=== PATIENT | female | born 1995 | race Caucasian/White ===

== ENCOUNTER 2016-07-12 05:42 | Inpatient (IN) | payer OTHER ==
[2016-07-12] VITALS (8 sets, daily range): BP systolic 108–128; BP diastolic 53–72
[~2016-07-12] VITALS: Ht 165.1 cm; Wt 69.0 kg
[~2016-07-12 05:42] MED LIST: FERR325T3 PO; PRENTAB9 PO
[2016-07-12 06:23] LABS: MEAN CORPUSCULAR HEMOGLOBIN 24.3 pg (27.0-33.0); MEAN CORPUSCULAR HGB CONC 31.7 g/dl (32.0-36.5); MEAN CORPUSCULAR VOLUME 76.6 fl (80.0-96.0); RED CELL DISTRIBUTION WIDTH 17.5 % (11.5-14.5)
[2016-07-12] MEDS ORDERED: LACTATED RINGER'S 1000 ML IV STA (08:09)
[2016-07-12] MEDS ORDERED: LR 1,000 ML IV SCH ×2 (08:09→10:30)
[2016-07-12] MEDS ORDERED: BICITRA 30ML SOLN UDC PO ONE (08:15)
--- NOTE | 2016-07-12 08:41 | HPEPDOC ---
Obstetrical History & Physical General Date of Admission July 12, 2016 at 05:42 History of Present Illness Jennifer Delgado is a 20yo with SIUP at 39w0d presenting for RLTCS. She has hx of prior for likely abruption with NRFHT at 36wk in August 2015. Short inter- interval. Anemia in current . Feels well with no complaints today. Feels good movement. No ctx, LOF, vb. Chief Complaint: section Information Provided By: Patient Care Care: Good Care Dating Final EDC: July 19, 2016 Final EDC by: LMP, 1st trimester (US) Antepartum Course Diagnos(e)s History of prior . Short inter- interval. Anemia. Height (inches): 65 Pre- weight (lbs.): 125 Admission Weight (lbs.): 157 Change in Weight (lbs.): 32 Past Medical History Past Obstetrical History : Past Obstetrical History: Multigravida Date of Delivery: Aug 04, 2015 Type of Delivery: Ceserean section Sex of : Female Complications: Yes ( for abruption with NRFHT, infant had IUGR) [employer] TE[employer]ER History: No pertinent history Past Medical History Medical History benign Surgical History: section, Tonsilectomy Family History Significant Family History: No pertinent family hx Social History Marital Status: Family situation: Spouse/partner home Psychosocial History: No pertinent psych hx * Smoker: non-smoker Alcohol: Denies Drugs: denies Imunizations Tdap status: declined Influenza Status: declined Allergies Coded Allergies: No Known Allergies (Unverified , 07/05/16) Medications Scheduled Ferrous Sulfate (Ferrous Sulfate) 325 Mg Tab, 325 MG PO DAILY Multivitamins/ ( 27-0.8 mg) 1 Tab Tab, 1 TAB PO DAILY Physical Examination Physical Examination GENERAL: Alert and oriented times three. ABDOMEN: Gravid and non-tender to touch. HEART RATE: Regular rate and rhythm. LUNGS: Clear to auscultation (CTA). EXTREMITIES: Trace edema BLE Vital Signs/I&O Vital Signs Date Time Temp Pulse Resp B/P (MAP) Pulse Ox O2 Delivery O2 Flow Rate FiO2 07/12/16 07:20 98.0 85 18 117/72 (87) Laboratory Data 24H LABS Laboratory Tests 2 07/12/16 00:07: Serology Scanned Report Hepatitis B Testing 07/12/16 06:06: CBC/BMP Laboratory Tests 07/12/16 06:06 Red Blood Count 4.00, Mean Corpuscular Volume 76.6 L, Mean Corpuscular Hemoglobin 24.3 L, Mean Corpuscular Hemoglobin Concent 31.7 L, Red Cell Distribution Width 17.5 H Pertinent Laboratoy Data Blood Type: A+ RBC Antibody Screen: Negative HIV: Negative Hepatitis B: Negative Hepatitis C: Unknown Rubella: Immune Varicella: Nonreactive Chlamydia/Gonorrhea: Negative Group B Streptococcus: Positive Glucose Tolerance Test: 132 Anatomy Ultrasound Ultrasound Date: Mar 03, 2016 Placenta Location: Posterior Normal Anatomy: Yes Placenta Previa: No Other Ultrasounds At 28wk, GS 64%ile Steroid Therapy Steroid Therapy: No Assessment/Plan Assessment Jennifer Delgado is a 20yo with SIUP at 39w0d presenting for RLTCS. She has hx of prior for likely abruption with NRFHT at 36wk in August 2015. That infant had IUGR, likely placental insufficiency issue. In this , 28wk GS performed with EFW 64%ile. She has short inter- interval (last c/s was August 2015), so recommended RLTCS rather than TOLAC. She has anemia of , otherwise healthy. No allergies to medications, GBS positive. Vitals wnl, benign exam. Plan Admit and orient. Consented for RLTCS, accepting of blood transfusion should one be necessary. All questions answered. NPO before surgery Anceph 2g IV pre-op Bicitra Lactated Ringers (LR): Bolus 1000 mL, then at 125 mL/hr MD ANA Campos KATRINA D. MD July 12, 2016 08:41
[2016-07-12] MEDS ORDERED: NALOXONE INJ 0.4 MG/1 ML VIAL (J2310) IV PRN ×2 (08:44)
[2016-07-12] MEDS ORDERED: NALBUPHINE HCL 10 MG/ML AMP (J2300) IV PRN (08:44)
[2016-07-12] MEDS ORDERED: ONDANSETRON 4MG/2ML VIAL (J2405) IV PRN ×2 (08:44→10:30)
[2016-07-12] MEDS ORDERED: METOCLOPRAMIDE INJ 10MG/2ML VIAL (J2765) IV PRN (08:44)
[2016-07-12] MEDS ORDERED: ONDANSETRON 4MG/2ML VIAL (J2405) As Ordered ONE (09:41)
[2016-07-12] MEDS ORDERED: dexameTHASONE 4 MG/ML 1ML VIAL (J1100) As Ordered ONE (09:41)
[2016-07-12] MEDS ORDERED: OXYTOCIN INJ 10 UNITS/ML VIAL (J2590) As Ordered ONE ×2 (09:41→09:57)
[2016-07-12] MEDS ORDERED: PHENYLephrine HCL 500 MCG/5 ML (100MCG/ML) SYRINGE (J2370) As Ordered ONE (09:41)
[2016-07-12] MEDS ORDERED: ePHEDrine SULFATE 25 MG/5 ML(5MG/ML) SYRINGE As Ordered ONE (09:41)
[2016-07-12] MEDS ORDERED: MORPHINE PRES-FREE INJ 10 MG/10 ML VIAL (J2274) As Ordered ONE (09:41)
[2016-07-12] MEDS ORDERED: KETOROLAC 60 MG/2 ML VIAL (J1885) As Ordered ONE (09:41)
[2016-07-12] MEDS ORDERED: fentaNYL 100 MCG/2 ML INJECTION (J3010) IV PRN (10:30)
[2016-07-12] MEDS ORDERED: diphenhydrAMINE INJ 50MG/ML VIAL (J1200) IV PRN (10:30)
[2016-07-12] MEDS ORDERED: PERCOCET 5MG/325MG TAB PO PRN ×2 (10:30)
[2016-07-12] MEDS ORDERED: MEASLES,MUMPS,RUBELLA VACCINE INJ (MMR-II) (90707) SC SCH (10:30)
[2016-07-12] MEDS ORDERED: KETOROLAC 30 MG/ML VIAL (J1885) IV PRN (10:30)
[2016-07-12] MEDS ORDERED: RHOGAM 300 MCG (1500 IU) INJ (J2790) IM SCH (10:30)
[2016-07-12] MEDS: KETOROLAC 30 MG/ML VIAL (J1885) IV SCH ×2 (16:18→21:51)
[2016-07-12] MEDS: DOCUSATE SODIUM 100 MG CAP PO SCH (21:00)
[2016-07-13] MEDS: KETOROLAC 30 MG/ML VIAL (J1885) IV SCH ×2 (04:42→09:56)
[2016-07-13 06:00] VITALS: BP 99/56
[2016-07-13 07:24] LABS: MEAN CORPUSCULAR HEMOGLOBIN 24.4 pg (27.0-33.0); MEAN CORPUSCULAR HGB CONC 31.4 g/dl (32.0-36.5); MEAN CORPUSCULAR VOLUME 77.6 fl (80.0-96.0); RED CELL DISTRIBUTION WIDTH 17.4 % (11.5-14.5); WHITE BLOOD COUNT 10.4 K/mm3 (4.0-10.0)
--- NOTE | 2016-07-13 08:48 | IPNPDOC ---
Text Note Date of Service The patient was seen on 07/13/16. NOTE Post-Op Day 1 Jennifer is a 20yo [id number] doing well on post-op day 1 s/p uncomplicated RLTCS at 39wk indicated for hx of prior with short inter- interval. She is . Lochia normal, spontaneously voiding and ambulating without difficulty. Tolerating regular diet. Denies f/c/n/v/SOB/CP/BAUTISTA/abdominal pain. Vitals wnl, afebrile Exam: General: WDWN, NAD, resting comfortably Cardiac: S1S2 present, no murmur Lungs: CTAB without wheeze/crackles Abdomen: soft, NTTP, fundus firm u-2cm, pfannensteil covered by dry dressing with no strike-through Extremities: no tenderness of calves bilaterally Labs: pre-op H/H 9.7/30.6 post-op H/H 8/25.5 Assessment: Jennifer is a 20yo [id number] doing well on post-op day 1 s/p uncomplicated RLTCS at 39wk indicated for hx of prior with short inter- interval. Vitals wnl, benign exam. No e/o infection, hemodynamically stable. Plan: -routine post-op/post- care -Regular diet -percocet/motrin for pain -ok to shower today -Encourage ambulation and use of IS -declines -anticipate discharge tomorrow Dr. Janie Archer MD [place] ALICIA VS,Marcelina, I+O VS, Marcelina, I+O Laboratory Tests 07/13/16 07:03 Red Blood Count 3.29 L, Mean Corpuscular Volume 77.6 L, Mean Corpuscular Hemoglobin 24.4 L, Mean Corpuscular Hemoglobin Concent 31.4 L, Red Cell Distribution Width 17.4 H Vital Signs Date Time Temp Pulse Resp B/P (MAP) Pulse Ox O2 Delivery O2 Flow Rate FiO2 07/13/16 06:00 97.7 61 18 99/56 (70) 99 I&O- Last 24 Hours up to 6 AM 07/13/16 06:00 Intake Total 1300 ml Output Total 2850 ml Balance -1550 ml JANIE ARCHER MD July 13, 2016 08:48
[2016-07-13] MEDS: DOCUSATE SODIUM 100 MG CAP PO SCH ×2 (09:56→21:00)
[2016-07-13] MEDS: PRENATAL VITAMIN TAB PO SCH (09:56)
[2016-07-13 10:30] VITALS: BP 114/64
--- NOTE | 2016-07-13 12:21 | RO ---
DATE OF PROCEDURE: 07/12/2016 PREPROCEDURE DIAGNOSES: 1. Single intrauterine at 39 weeks 0 days with a history of prior section. 2. Short interpregnancy interval. 3. Anemia of . POSTPROCEDURE DIAGNOSES: 1. Single intrauterine at 39 weeks 0 days with a history of prior section. 2. Short interpregnancy interval. 3. Anemia of . 4. Delivered. PROCEDURE: Repeat low transverse section. SURGEON: Janie Archer. BUNDLE CLERK: Zeke Wagner. ANESTHESIA: spinal ESTIMATED BLOOD LOSS: 500 mL. FLUIDS: 3 liters of lactated ringers. URINE OUTPUT: 200 mL of yellow clear urine. MATERIAL FORWARDED TO LAB FOR EXAMINATION: None. INFECTION CLASSIFICATION: 2. INDICATION FOR OPERATION: Jennifer is a 20-year-old G2 now P-1-1-0-2 who had a scheduled section at 39 weeks 0 days with single intrauterine for having a history of prior section that was performed for likely placental abruption at 36 weeks in the setting of intrauterine growth restriction with her previous . This , she had a 28 week growth scan that showed 64th percentile so no concerns for intrauterine growth restriction (IUGR) , however, she has a short interpregnancy interval as her last baby was delivered in August 2015 so she was not a candidate for trial of labor and was counseled on repeat section. DESCRIPTION OF FINDINGS: Female infant in OT position. 9 and 9. Weight 8 pounds 11 ounces or 3940 grams. Normal appearing uterus, ovaries and fallopian tubes. She had a significant hyperpigmented, wide prior pfannensteil scar, and she had extensive scarring in the subcutaneous layers but no intra-abdominal adhesions. DESCRIPTION OF OPERATION: Jennifer was taken to the operating room where she received spinal anesthesia and 2 grams of Ancef prophylactically. A Li catheter and bilateral sequential compression devices were placed. She was prepped and draped in a normal sterile fashion in dorsal supine position with left lateral tilt. Time out was performed to confirm patient name, date of , procedure and indications. The team was in agreement. Spinal anesthesia was found to be adequate using an Allis clamp. We used a scalpel to excise the previous Pfannenstiel skin incision scar undermining just underneath the scar tissue and removing it from the field. We then continued the incision down with the scalpel through to the underlying layer of fascia. There was dense scarring in the subcutaneous layer. The fascia was incised in the midline and the incision was extended laterally with blunt dissection. Superior and inferior aspects of the facial incision were grasped with Heriberto clamps, elevated and the underlying rectus muscles were dissected off bluntly and sharply. Peritoneum was entered digitally and the rectus muscles were in the midline. Peritoneal incision was extended superiorly and inferiorly with good visualization of the bladder. Bladder blade was inserted. The vesicouterine peritoneum was identified, grasped with pickups and entered sharply with Metzenbaum scissors. The incision was extended laterally and the bladder flap was created digitally. Bladder blade was reinserted and the lower uterine segment was scored in a transverse fashion with a scalpel. Uterus was entered bluntly and the incision was extended with traction with clear amniotic fluid noted. Bladder blade was removed and the infant's head was elevated to the level of the incision. Fundal pressure was applied and head was delivered atraumatically in the OT position. Anterior shoulder, posterior shoulder and corpus were delivered without difficulty. Nose and mouth were suctioned with bulb suction. Cord was clamped times two and cut. was handed off to the awaiting team. Placenta was removed with traction on the umbilical cord and uterine massage and the uterus was exteriorized and cleared of all clot and debris. Uterine incision was repaired with #0 Vicryl suture in a running locking fashion and a second layer of #0 Monocryl was used to close the hysterotomy in an imbricating fashion. Uterine incision was inspected. Hemostasis noted after one further [id number] using #0 Vicryl suture was placed in the middle aspect of the hysterotomy closure. At this time, we then irrigated the posterior cul-de-sac and returned the uterus to the abdomen. Gutters were cleared of all clots with hemostasis noted. Peritoneum was closed using #3-0 Vicryl suture in a running fashion. Fascia was reapproximated using #0 Vicryl suture in a running fashion. Subcutaneous tissue was copiously irrigated. Anette's fascia was reapproximated using #3-0 Vicryl suture in a running fashion. Skin edges were re-approximated using several inverted interrupted stitches using #3-0 Vicryl suture followed by a running subcuticular stitch using #4-0 Monocryl suture. Care was taken to take tension off of the skin with the Vicryl sutures underlying and it closed nicely. Incision was cleaned using a wet lap and dried with a dry lap. Steri-Strips were applied in the usual fashion perpendicular to Pfannenstiel incision. Telfa was layered on top of the Steri-Strips followed by a dry sterile towel. Surgical drapes were removed and sterile towel was removed. Pressure dressing was applied over the entire surgical incision. Vagina was cleared of all blood clots without active bleeding noted. The fundus was firm at U -1 cm. Sponge, lap, needle counts were correct times two. Procedure was without complication and she tolerated the procedure well. Patient was taken to the recovery room on labor and delivery in stable condition. MARGRET
[2016-07-13 14:10] VITALS: BP 114/59
[2016-07-13] MEDS: PERCOCET 5MG/325MG TAB PO PRN ×2 (15:23→23:44)
[2016-07-13 17:25] VITALS: BP 117/60
[2016-07-13] MEDS: IBUPROFEN 800 MG TAB PO SCH (18:09)
[2016-07-13 22:25] VITALS: BP 116/61
[2016-07-14] MEDS: IBUPROFEN 800 MG TAB PO SCH ×2 (02:12→09:04)
[2016-07-14 06:00] VITALS: BP 119/58
[2016-07-14] MEDS: DOCUSATE SODIUM 100 MG CAP PO SCH (09:04)
[2016-07-14] MEDS: PRENATAL VITAMIN TAB PO SCH (09:04)
[2016-07-14] MEDS ORDERED: COLA100C3 PO (11:50)
[2016-07-14] MEDS ORDERED: OXYC1TAB23 PO (11:50)
[2016-07-14] MEDS ORDERED: IBUP-1114 PO (11:50)
--- NOTE | 2016-07-14 12:32 | IPNPDOC ---
Text Note Date of Service The patient was seen on 07/14/16. NOTE Post-Op Day 2 Jennifer is a 20yo [id number] doing well on post-op day 2 s/p uncomplicated RLTCS at 39wk indicated for hx of prior with short inter- interval. Minimal pain. She is bottle feeding. Lochia normal, spontaneously voiding and ambulating without difficulty. Tolerating regular diet. Denies f/c/n/v/SOB/CP/BAUTISTA /abdominal pain. Vitals wnl, afebrile Exam: General: WDWN, NAD, sitting comfortably Abdomen: soft, NTTP, fundus firm u-2cm, pfannensteil well re-approximated with no erythema, drainage or induration Extremities: trace edema of bilateral lower extremities Labs: pre-op H/H 9.7/30.6 post-op H/H 8/25.5 Assessment: Jennifer is a 20yo [id number] doing well on post-op day 2 s/p uncomplicated RLTCS at 39wk indicated for hx of prior with short inter- interval. Vitals wnl, benign exam. No e/o infection, hemodynamically stable. Plan: -discharge to home with follow-up appointment in 2 weeks in clinic -Regular diet -percocet/motrin for pain Dr. [place] VS,Marcelina, I+O VS, Marcelina, I+O Vital Signs Date Time Temp Pulse Resp B/P (MAP) Pulse Ox O2 Delivery O2 Flow Rate FiO2 07/14/16 06:00 97.7 60 16 119/58 (78) 07/13/16 15:23 Room Air 07/13/16 06:00 99 REJI ARCHER MD July 14, 2016 12:32
--- NOTE | 2016-07-14 12:37 | DS.PDOC ---
Discharge Summary General Date of Admission July 12, 2016 at 05:42 Date of Discharge July 14, 2016 Attending Physician: REJI ARCHER MD Discharge Summary PROCEDURES PERFORMED DURING STAY: Repeat low transverse section ADMITTING DIAGNOSES: 1. Term intrauterine with history of prior section 2. Short inter- interval 3. Anemia DISCHARGE DIAGNOSES: 1. Term intrauterine with history of prior section 2. Short inter- interval 3. Anemia 4. Delivered COMPLICATIONS/CHIEF COMPLAINT: History Of Prior Section. HISTORY OF PRESENT ILLNESS/HOSPITAL COURSE: Jennifer is a 20 year old [id number] discharged in good condition on post- operative day 2 after uncomplicated repeat low transverse section at 39 weeks indicated for history of prior with short inter- interval. At time of discharge, vitals normal, benign exam. No evidence of infection, hemodynamically stable. DISCHARGE MEDICATIONS: percocet, motrin, miralax, minipill ALLERGIES: Please see below. PHYSICAL EXAMINATION ON DISCHARGE: Vitals normal, afebrile Exam: General: WDWN, NAD, sitting comfortably Abdomen: soft, NTTP, fundus firm u-2cm, pfannensteil well re-approximated with no erythema, drainage or induration Extremities: trace edema of bilateral lower extremities LABORATORY DATA: pre-op H/H 9.7/30.6 post-op H/H 8/25.5 ACTIVITY: vaginal rest for 6 weeks, no heavy lifting greater than weight of baby for 6 weeks DIET: regular DISCHARGE PLAN: discharge to home DISCHARGE INSTRUCTIONS: 1. Keep incision clean and dry 2. Remove steri strips in 1 week 3. Vaginal rest and no heavy lifting for 6 weeks 4. Return precautions: return for heavy vaginal bleeding or malodorous vaginal discharge, increasing pain despite medications, fevers/chills, redness or pus of incision DISCHARGE CONDITION: Stable TIME SPENT ON DISCHARGE: Greater than [address] Reji Archer MD [facility] [place] Vital Signs/I&Os Vital Signs Date Time Temp Pulse Resp B/P (MAP) Pulse Ox O2 Delivery O2 Flow Rate FiO2 07/14/16 06:00 97.7 60 16 119/58 (78) 07/13/16 15:23 Room Air 07/13/16 06:00 99 Discharge Medications Scheduled Docusate Sodium (Colace) 100 Mg Cap, 100 MG PO BID, (Reported) Ferrous Sulfate (Ferrous Sulfate) 325 Mg Tab, 325 MG PO DAILY, (Reported) Multivitamins/ ( 27-0.8 mg) 1 Tab Tab, 1 TAB PO DAILY, (Reported ) Scheduled PRN Ibuprofen (Ibuprofen) 400 Mg Tab, 800 MG PO Q8HP PRN for PAIN, (Reported) Oxycodone/Acetaminophen (Oxycodone/Acetaminophen 5-325 mg) 1 Tab Tab, 1-2 TAB PO Q4HP PRN for PAIN, (Reported) Allergies Coded Allergies: No Known Allergies (Unverified , 07/05/16) REJI ARCHER MD July 14, 2016 12:37
== END 2016-07-14 12:20 | disposition home or self-care (01) | DRG 766 ==
LOC: M LDI 05:42 → M OBS 12:09
PROVIDERS: ADMIT Obstetrics & Gynecology; ATTEND Obstetrics & Gynecology
PROC: 10D00Z1 Extraction of Products of Conception, Low, Open Approach (ICD-10-PCS; principal; 2016-07-12 07:30)
DX: O34.211 Maternal care for low transverse scar from previous cesarean delivery (principal); O99.02 Anemia complicating childbirth; Z3A.39 39 weeks gestation of pregnancy; D64.9 Anemia, unspecified; O99.824 Streptococcus B carrier state complicating childbirth; Z37.0 Single live birth

== ENCOUNTER 2016-09-19 01:33 | Emergency (ER) | payer OTHER ==
[~2016-09-19 01:33] MED LIST changes: +COLA100C5 PO; +IBUP-1114 PO; +OXYC1TAB23 PO
[2016-09-19] MEDS ORDERED: PERCOCET 5MG/325MG TAB PO ONE (02:30)
[2016-09-19 02:45] LABS: BASO % 0.4 % (0.0-1.0); EOS # 0.2 K/mm3 (0.0-0.50); EOS % 2.8 % (0.0-3.0); LARGE UNSTAINED CELL # 0.1 K/mm3 (0.0-0.4); LARGE UNSTAINED CELL % 1.5 % (0.0-4.0); LYMPH # 2.2 K/mm3 (1.5-6.5); LYMPH % 34.2 % (24.0-44.0); MEAN CORPUSCULAR HEMOGLOBIN 26.3 pg (27.0-33.0); MEAN CORPUSCULAR VOLUME 82.2 fl (80.0-96.0); MONO # 0.4 K/mm3 (0.0-0.8); MONO % 5.8 % (0.0-5.0); NEUTROPHILS # 3.3 K/mm3 (1.8-7.7); NEUTROPHILS % 55.3 % (36.0-66.0); PLATELET COUNT, AUTOMATED 215 k/mm3 (150-450); RED CELL DISTRIBUTION WIDTH 16.8 % (11.5-14.5)
[2016-09-19 02:52] LABS: ALBUMIN 3.3 GM/DL (3.2-5.2); ALBUMIN/GLOBULIN RATIO 0.89 (1.00-1.93); ALKALINE PHOSPHATASE 57 U/L (45-117); ALT/SGPT 50 U/L (12-78); AMYLASE 38 U/L (25-115); ANION GAP 5 MEQ/L (8-16); AST/SGOT 29 U/L (15-37); BILIRUBIN,DIRECT < 0.1 MG/DL (0.0-0.2); BILIRUBIN,TOTAL 0.2 MG/DL (0.2-1.0); BLOOD UREA NITROGEN 7 MG/DL (7-18); CALCIUM LEVEL 8.7 MG/DL (8.5-10.1); CARBON DIOXIDE LEVEL 26 MEQ/L (21-32); CHLORIDE LEVEL 109 MEQ/L (98-107); CREATININE FOR GFR 0.62 MG/DL (0.55-1.02); GLUCOSE, FASTING 96 MG/DL (70-105); SODIUM LEVEL 140 MEQ/L (136-145)
[2016-09-19] MEDS ORDERED: KETOROLAC 30 MG/ML VIAL (J1885) IV ONE (03:00)
[2016-09-19] MEDS ORDERED: ISOVUE-370 76% 100ML VIAL (Q9967) As Ordered ONE (03:25)
[2016-09-19 03:36] LABS: CONTROL LINE HCG INT CTR LINE PRESENT
--- NOTE | 2016-09-19 04:10 | REPUSA ---
CLINICAL HISTORY: Pain, exclude PE. TECHNIQUE: Multiple incremental axial, coronal and oblique images are obtained from the thoracic inle t to the upper abdomen. Intravenous contrast material was administered as per pulmonary embolism prot ocol. COMMENTS: There is excellent opacification of pulmonary arterial system without evidence for pulmonary embolism . Aorta is of normal caliber without evidence for dissection or aneurysm. There is no evidence of pleural or parenchymal mass. Minimal basilar atelectatic pulmonary events. Th ere are no pleural effusions. There is no evidence of hilar or mediastinal lymphadenopathy. The heart and great vessels are within normal limits. Images of the upper abdomen demonstrate no evidence of adrenal mass. The bony structures are free of lytic or blastic lesions. IMPRESSION: No evidence for pulmonary embolism. Thank you for your kind referral of this patient.
[2016-09-19] MEDS ORDERED: KETO10TAB PO (05:09)
[2016-09-19] MEDS ORDERED: PRED20TA PO (05:09)
[2016-09-19 05:23] VITALS: BP 123/75
== END 2016-09-19 06:02 | disposition home or self-care (01) ==
LOC: M ED 01:33
DX: R07.81 Pleurodynia (principal); Z79.899 Other long term (current) drug therapy
CPT/HCPCS: 71275; 80048; 80076; 82150; 83690; 84703; 85025; 96374; 99283; Q9967

== ENCOUNTER 2016-09-22 04:00 | Emergency (ER) | payer OTHER ==
[~2016-09-22 04:00] MED LIST changes: +KETO10TAB PO; +PRED20TA PO
[2016-09-22] MEDS ORDERED: birth control tab PO (04:31)
[2016-09-22] MEDS ORDERED: MORPHINE 4 MG/ML 1ML SYRINGE IV ONE (05:30)
[2016-09-22] MEDS ORDERED: METOCLOPRAMIDE INJ 10MG/2ML VIAL (J2765) IV ONE (05:30)
[2016-09-22 05:53] LABS: BASO % 0.2 % (0.0-1.0); EOS % 0.5 % (0.0-3.0); LARGE UNSTAINED CELL # 0.1 K/mm3 (0.0-0.4); LARGE UNSTAINED CELL % 0.8 % (0.0-4.0); LYMPH # 0.9 K/mm3 (1.5-6.5); LYMPH % 10.9 % (24.0-44.0); MEAN CORPUSCULAR HEMOGLOBIN 27.2 pg (27.0-33.0); MEAN CORPUSCULAR HGB CONC 32.9 g/dl (32.0-36.5); MEAN CORPUSCULAR VOLUME 82.8 fl (80.0-96.0); MONO # 0.5 K/mm3 (0.0-0.8); MONO % 6.2 % (0.0-5.0); NEUTROPHILS # 6.3 K/mm3 (1.8-7.7); NEUTROPHILS % 81.3 % (36.0-66.0); PLATELET COUNT, AUTOMATED 252 k/mm3 (150-450); RED CELL DISTRIBUTION WIDTH 17.1 % (11.5-14.5); WHITE BLOOD COUNT 7.8 K/mm3 (4.0-10.0)
--- NOTE | 2016-09-22 06:00 | REPUSA ---
CLINICAL HISTORY: Abdominal pain. TECHNIQUE: Multiple axial, sagittal and coronal CT images were obtained through the abdomen and pelvi s without administration of oral or IV contrast material. COMMENTS: Moderate large bowel fecal stasis. Thickening of the hepatic flexure of the colon extending to the mid aspect of the transverse colon. The liver is of uniform attenuation without mass or defect. There is no intra or extrahepatic biliary ductal dilatation. The spleen is normal. The gallbladder is within normal limits. The pancreas is of normal contour and attenuation characteristics. There is no evidence of adrenal mass. The kidneys are normal in size, shape and configuration. No renal or ureteral calculi are identified. There is no hydroureter or hydronephrosis. There is no evidence for appendicitis. No evidence for small or large bowel obstruction. There is no evidence of abdominal ascites or lymphadenopathy. There is no evidence of intrinsic or extrinsic bladder mass. There is no pelvic ascites or lymphadeno clover. Images of the lung bases show no evidence of pleural or parenchymal mass. There are no pleural effusi ons. The bony structures are free of lytic or blastic lesions. Multilevel degenerative changes are seen in volving the thoracolumbar spine. Scattered calcifications are seen involving the aorta and major branches compatible with atherosclero sis. IMPRESSION: Large bowel fecal stasis. Thickened hepatic flexure of the colon and proximal aspect of the transverse colon. Underdistention, spasm versus inflammatory pathology. Thickened bladder. Nondistention versus mild cystitis. Thank you for your kind referral of this patient.
[2016-09-22 06:21] LABS: ALBUMIN 3.5 GM/DL (3.2-5.2); ALBUMIN/GLOBULIN RATIO 1.03 (1.00-1.93); ALKALINE PHOSPHATASE 61 U/L (45-117); ALT/SGPT 81 U/L (12-78); AMYLASE 28 U/L (25-115); ANION GAP 9 MEQ/L (8-16); AST/SGOT 98 U/L (15-37); BILIRUBIN,DIRECT 0.2 MG/DL (0.0-0.2); BILIRUBIN,TOTAL 0.4 MG/DL (0.2-1.0); BLOOD UREA NITROGEN 9 MG/DL (7-18); CALCIUM LEVEL 8.9 MG/DL (8.5-10.1); CARBON DIOXIDE LEVEL 26 MEQ/L (21-32); CHLORIDE LEVEL 105 MEQ/L (98-107); CREATININE FOR GFR 0.69 MG/DL (0.55-1.02); GLUCOSE, FASTING 122 MG/DL (70-105); POTASSIUM SERUM 3.8 MEQ/L (3.5-5.1); SODIUM LEVEL 140 MEQ/L (136-145); TOTAL PROTEIN 6.9 GM/DL (6.4-8.2)
[2016-09-22 06:30] VITALS: BP 122/56
[2016-09-22] MEDS ORDERED: ZOFR4TAB3 PO (06:43)
[2016-09-22] MEDS ORDERED: HYDR-3713 PO (06:43)
[2016-09-22] MEDS ORDERED: MIRA3350 PO (06:47)
--- NOTE | 2016-09-22 07:10 | REPUSA ---
CLINICAL HISTORY: Abdominal pain. TECHNIQUE: Realtime sonographic images were obtained in multiple projections. COMMENTS: The liver is of normal size, parenchyma demonstrates normal echogenicity. No discrete hepatic mass is seen. There is no intra or extrahepatic biliary ductal dilatation. CBD measures 5.2 mm. The gallbladder is physiologically distended with evidence of calculi. The gallbladder wall is not thickened and there i s no pericholecystic fluid. There is no abdominal ascites. The right kidney measures 11.6 x 5.1 x 4.7 cm , free of hydronephrosis. IMPRESSION: Cholelithiasis. Thank you for your kind referral of this patient.
--- NOTE | 2016-09-22 15:05 | ED PDOC ---
Post-Departure Follow-Up radiology report faxed to Mikki Garcia MD Sep 22, 2016 15:05
== END 2016-09-22 06:54 | disposition home or self-care (01) ==
LOC: M ED 04:00
DX: K80.50 Calculus of bile duct without cholangitis or cholecystitis without obstruction (principal); Z79.899 Other long term (current) drug therapy
CPT/HCPCS: 74176; 76705; 80048; 80076; 82150; 83690; 85025; 96374; 96375; 99283; J2765

== ENCOUNTER 2016-09-24 18:45 | Inpatient (IN) | payer OTHER ==
[~2016-09-24] VITALS: Ht 165.1 cm; Wt 65.0 kg
[~2016-09-24 18:45] MED LIST changes: +HYDR-3713 PO; +MIRA3350 PO; +ZOFR4TAB3 PO; +birth control tab PO
[2016-09-24] MEDS ORDERED: PRED20TA PO (19:02)
[2016-09-24] MEDS ORDERED: NS 1,000 ML IV ONE (21:15)
[2016-09-24] MEDS ORDERED: ONDANSETRON 4MG/2ML VIAL (J2405) IV ONE (21:15)
[2016-09-24] MEDS ORDERED: MORPHINE 2 MG/ML 1ML SYRINGE IV PRN (21:15)
[2016-09-24 21:35] LABS: BASO % 0.5 % (0.0-1.0); EOS # 0.1 K/mm3 (0.0-0.50); EOS % 2.9 % (0.0-3.0); LARGE UNSTAINED CELL # 0.1 K/mm3 (0.0-0.4); LARGE UNSTAINED CELL % 1.6 % (0.0-4.0); LYMPH # 1.7 K/mm3 (1.5-6.5); LYMPH % 36.4 % (24.0-44.0); MEAN CORPUSCULAR HEMOGLOBIN 26.8 pg (27.0-33.0); MEAN CORPUSCULAR HGB CONC 31.6 g/dl (32.0-36.5); MEAN CORPUSCULAR VOLUME 84.8 fl (80.0-96.0); MONO # 0.3 K/mm3 (0.0-0.8); MONO % 6.6 % (0.0-5.0); NEUTROPHILS # 2.3 K/mm3 (1.8-7.7); NEUTROPHILS % 51.9 % (36.0-66.0); PLATELET COUNT, AUTOMATED 237 k/mm3 (150-450); RED CELL DISTRIBUTION WIDTH 16.8 % (11.5-14.5); WHITE BLOOD COUNT 4.4 K/mm3 (4.0-10.0)
[2016-09-24 22:02] LABS: ALBUMIN 3.7 GM/DL (3.2-5.2); ALBUMIN/GLOBULIN RATIO 1.19 (1.00-1.93); ALKALINE PHOSPHATASE 159 U/L (45-117); ALT/SGPT 636 U/L (12-78); ANION GAP 7 MEQ/L (8-16); AST/SGOT 307 U/L (15-37); BILIRUBIN,DIRECT 1.9 MG/DL (0.0-0.2); BLOOD UREA NITROGEN 6 MG/DL (7-18); CALCIUM LEVEL 8.9 MG/DL (8.5-10.1); CARBON DIOXIDE LEVEL 29 MEQ/L (21-32); CHLORIDE LEVEL 102 MEQ/L (98-107); CREATININE FOR GFR 0.56 MG/DL (0.55-1.02); GLUCOSE, FASTING 84 MG/DL (70-105); POTASSIUM SERUM 3.4 MEQ/L (3.5-5.1); SODIUM LEVEL 138 MEQ/L (136-145); TOTAL PROTEIN 6.8 GM/DL (6.4-8.2)
[2016-09-24 22:26] LABS: BILIRUBIN,TOTAL 2.7 MG/DL (0.2-1.0)
[2016-09-24] MEDS ORDERED: METOCLOPRAMIDE INJ 10MG/2ML VIAL (J2765) IV ONE (22:30)
[2016-09-25] VITALS (8 sets, daily range): BP systolic 111–143; BP diastolic 56–76
--- NOTE | 2016-09-25 00:40 | REPUSA ---
CLINICAL HISTORY: RUQ pain. TECHNIQUE: Realtime sonographic images were obtained in multiple projections. COMMENTS: Comparison is made to prior exam performed on 09/22/2016. Unchanged gallstones. Stone is noted in the most distal aspect of the common bile duct. The common bile duct measures 5.7 mm. Unremarkable liver. Unremarkable pancreas. Unremarkable right kidney measuring 12.2x4.9x4.7 cm. The visualized liver is of uniform echo texture without evidence of mass or defect. There is no intra or extrahepatic biliary ductal dilatation. The gallbladder wall is not thickened and there is no pericholecystic fluid. The visualized portions of the pancreas are unremarkable. IMPRESSION: Unchanged cholelithiasis. Choledocholithiasis which was not present on prior exam. Thank you for your kind referral of this patient.
[2016-09-25] MEDS: CIPROFLOXACIN 400 MG in APPROPRIATE DILUENT 1 EA IV SCH ×2 (01:00→13:14)
[2016-09-25] MEDS ORDERED: ACETAMINOPHEN TAB 650MG DOSE (2X325MG) PO PRN (01:45)
[2016-09-25] MEDS ORDERED: MORPHINE 4 MG/ML 1ML SYRINGE IV PRN (01:45)
[2016-09-25] MEDS ORDERED: ONDANSETRON 4MG/2ML VIAL (J2405) IV PRN ×2 (01:45→20:00)
[2016-09-25] MEDS ORDERED: NORCO, ANEXSIA 5/325MG TABLET (HYDROcodone/ACETAMINOPHEN) PO PRN (01:45)
[2016-09-25] MEDS ORDERED: HYDR-3713 PO (01:51)
[2016-09-25] MEDS ORDERED: KETO10TAB PO (01:51)
[2016-09-25] MEDS ORDERED: JUNETAB2 PO (01:51)
[2016-09-25] MEDS ORDERED: ZOFR4TAB3 PO (01:51)
[2016-09-25] MEDS: LR 1,000 ML IV SCH ×3 (02:47→14:24)
[2016-09-25] MEDS: metroNIDAZOLE 500 MG in APPROPRIATE DILUENT 1 EA IV SCH ×3 (02:47→18:00)
[2016-09-25 07:01] LABS: BASO % 0.4 % (0.0-1.0); EOS # 0.1 K/mm3 (0.0-0.50); EOS % 2.8 % (0.0-3.0); LARGE UNSTAINED CELL # 0.1 K/mm3 (0.0-0.4); LARGE UNSTAINED CELL % 1.4 % (0.0-4.0); LYMPH # 1.8 K/mm3 (1.5-6.5); LYMPH % 36.9 % (24.0-44.0); MEAN CORPUSCULAR HEMOGLOBIN 27.4 pg (27.0-33.0); MEAN CORPUSCULAR HGB CONC 32.7 g/dl (32.0-36.5); MEAN CORPUSCULAR VOLUME 83.8 fl (80.0-96.0); MONO # 0.4 K/mm3 (0.0-0.8); MONO % 7.5 % (0.0-5.0); NEUTROPHILS # 2.4 K/mm3 (1.8-7.7); NEUTROPHILS % 51.1 % (36.0-66.0); PLATELET COUNT, AUTOMATED 208 k/mm3 (150-450); RED CELL DISTRIBUTION WIDTH 16.9 % (11.5-14.5); WHITE BLOOD COUNT 4.7 K/mm3 (4.0-10.0)
[2016-09-25 07:24] LABS: ALBUMIN 2.8 GM/DL (3.2-5.2); ALKALINE PHOSPHATASE 134 U/L (45-117); ALT/SGPT 444 U/L (12-78); AMYLASE 21 U/L (25-115); ANION GAP 7 MEQ/L (8-16); AST/SGOT 172 U/L (15-37); BILIRUBIN,TOTAL 2.4 MG/DL (0.2-1.0); BLOOD UREA NITROGEN 5 MG/DL (7-18); CALCIUM LEVEL 8.1 MG/DL (8.5-10.1); CARBON DIOXIDE LEVEL 28 MEQ/L (21-32); CHLORIDE LEVEL 107 MEQ/L (98-107); GLUCOSE, FASTING 75 MG/DL (70-105); POTASSIUM SERUM 3.3 MEQ/L (3.5-5.1); SODIUM LEVEL 142 MEQ/L (136-145); TOTAL PROTEIN 5.9 GM/DL (6.4-8.2)
--- NOTE | 2016-09-25 08:40 | HPEPDOC ---
General Surgery H&P Date of Admission Sep 25, 2016 at 01:34 History and Physical CHIEF COMPLAINT: abdominal pain HISTORY OF PRESENT ILLNESS: [Healthy 20 year old female who has presented three times the past three weeks with symptoms related to her gallbladder, again presented to the ER on 09/24 for acute episode of severe epigastric and right upper quadrant pain radiating to the back that worsened since Sunday. This continued for the next couple of days, associated with nausea and vomiting. She denies any fevers, chills, jaundice. ALLERGIES: Please see below. HOME MEDICATIONS: Please see below. PAST MEDICAL HISTORY: none PAST SURGICAL HISTORY: Caesarian Section x 2 Tonsillectomy and adenoidectomy PERSONAL/SOCIAL HISTORY: Denies smoking, alcohol use, or recreational drug use. REVIEW OF SYSTEMS: GENERAL: Denies chills, fatigue, fever, Reports slight weight loss after . HEENT: Denies blurred vision and double vision. Denies ear symptoms. Denies hoarseness. NECK: Denies any neck pain. CARDIOVASCULAR: Denies chest pain and palpitations. MUSCULOSKELETAL: Denies arthralgias, back pain and thrombophlebitis. SKIN: Denies rash. NEUROLOGIC: Denies headache, stroke and transient ischemic attack. PSYCHIATRIC: Denies anxiety and depression. ENDOCRINE: Denies thyroid disease. HEMATOLOGY/ONCOLOGY: Denies any bleeding or clotting disorder. HEART: Denies any chest pains, palpitations, paroxysmal dyspnea, orthopnea. PULMONARY: Denies chronic cough, dyspnea and wheezing. GASTROINTESTINAL: Denies rectal bleeding, family history of colon cancer, constipation, diarrhea, dysphagia, heartburn and jaundice. GENITOURINARY: Denies dysuria, frequency, hematuria and nocturia. Just had given (via ) last July ENDOCRINE: Denies polydipsia, polyphagia, polyuria, heat or cold intolerance. INFECTIOUS: Denies any recent upper respiratory tract infection, UTI, need for use of antibiotics. NUTRITION: Reports good appetite. PHYSICAL EXAMINATION: VITAL SIGNS: Please see below. GENERAL APPEARANCE: Patient seen at bedside, appears mildly uncomfortable. Awake , alert, oriented. HEENT: Normocephalic, atraumatic. [place] palpebral conjunctivae. Anicteric sclerae. Lips moist. CHEST: No chest wall abnormalities. Normal respiratory motion/effort. NECK: Supple. No thyromegaly. No lymphadenopathies. LUNGS: Lung sounds are clear to auscultation bilaterally. No wheezing appreciated. HEART: No chest wall abnormalities. Heart rate and rhythm are regular with no murmurs. ABDOMEN: Abdomen is minimally distended, soft, skin is loose from recent . Tender over epigastric and right upper quadrant with mild guarding. SKIN: Warm, moist. EXTREMITIES: Extremities have no deformities. No edema identified. NEUROLOGICAL: . ANCILLARIES: . LABORATORY DATA: Please see below. MICROBIOLOGY: Please see below. IMAGING: . Ultrasound of the abdomen Unchanged cholelithiasis. Choledocholithiasis which was not present on prior exam. IMPRESSION AND PLAN: Cholelithiasis Choledocholithiasis with biliary obstruction Patient is admitted to my service. We will talk to GI (Dr. Byrd) for ERCP to remove the CBD stone and plan for cholecystectomy prior to discharging her home. She has been placed on antibiotics. She is not showing any signs of cholangitis. He will keep her nothing by mouth for possible ERCP. Plan was explained to the patient and all her questions and concerns addressed at this time. Vital Signs Vital Signs Date Time Temp Pulse Resp B/P (MAP) Pulse Ox O2 Delivery O2 Flow Rate FiO2 09/25/16 04:30 98.0 56 18 143/76 (98) 98 Room Air I&Os I&O- Last 24 Hours up to 6 AM 09/25/16 06:00 Intake Total 100 ml Output Total 600 ml Balance -500 ml Laboratory Data Labs 24H Laboratory Tests 2 09/24/16 21:16: White Blood Count 4.4, Red Blood Count 4.74, Hemoglobin 12.7, Hematocrit 40.2, Mean Corpuscular Volume 84.8, Mean Corpuscular Hemoglobin 26.8L, Mean Corpuscular Hemoglobin Concent 31.6L, Red Cell Distribution Width 16.8H, Platelet Count 237, Neutrophils (%) (Auto) 51.9, Lymphocytes (%) (Auto) 36.4, Monocytes (%) (Auto) 6.6H, Eosinophils (%) (Auto) 2.9, Basophils (%) (Auto) 0.5 , Neutrophils # (Auto) 2.3, Lymphocytes # (Auto) 1.7, Monocytes # (Auto) 0.3, Eosinophils # (Auto) 0.1, Basophils # (Auto) 0.0, Large Unclassified Cells % 1.6 , Large Unclassified Cells # 0.1, Anion Gap 7L, Calcium Level 8.9, Aspartate Amino Transf (AST/SGOT) 307H, Alanine Aminotransferase (ALT/SGPT) 636H, Alkaline Phosphatase 159H, Total Bilirubin 2.7#H, Direct Bilirubin 1.9H, Total Protein 6.8, Albumin 3.7, Albumin/Globulin Ratio 1.19, Lipase 94 09/24/16 21:19: Urine Appearance CLEAR, Urine Color [place], Urine pH 6.0, Urine Specific [place] 1.008, Urine Protein NEGATIVE, Urine Glucose (UA) NEGATIVE, Urine Ketones 1+H, Urine Urobilinogen 0.2, Urine Bilirubin NEGATIVE, Urine Leukocyte Esterase NEGATIVE, Urine Blood 1+H, Urine Nitrite NEGATIVE, Urine WBC (Auto) 2, Urine RBC (Auto) 1, Urine Hyaline Casts (Auto) 0, Urine Bacteria (Auto) NEGATIVE, Urine Squamous Epithelial Cells 3, Urine Amorphous Sediment SMALLH, Urine Sperm (Auto) 09/25/16 06:27: White Blood Count 4.7, Red Blood Count 4.19, Hemoglobin 11.5L, Hematocrit 35.1L , Mean Corpuscular Volume 83.8, Mean Corpuscular Hemoglobin 27.4, Mean Corpuscular Hemoglobin Concent 32.7, Red Cell Distribution Width 16.9H, Platelet Count 208, Neutrophils (%) (Auto) 51.1, Lymphocytes (%) (Auto) 36.9, Monocytes (%) (Auto) 7.5H, Eosinophils (%) (Auto) 2.8, Basophils (%) (Auto) 0.4 , Neutrophils # (Auto) 2.4, Lymphocytes # (Auto) 1.8, Monocytes # (Auto) 0.4, Eosinophils # (Auto) 0.1, Basophils # (Auto) 0.0, Large Unclassified Cells % 1.4 , Large Unclassified Cells # 0.1, Anion Gap 7L, Calcium Level 8.1L, Aspartate Amino Transf (AST/SGOT) 172H, Alanine Aminotransferase (ALT/SGPT) 444H, Alkaline Phosphatase 134H, Total Bilirubin 2.4H, Total Protein 5.9L, Albumin 2.8 #L, Albumin/Globulin Ratio 0.90L, Lipase 83, Blood Urea Nitrogen 5L, Creatinine 0.50L, Sodium Level 142, Potassium Level 3.3L, Chloride Level 107, Carbon Dioxide Level 28, Amylase Level 21L CBC/BMP Laboratory Tests 09/24/16 21:16 Red Blood Count 4.74, Mean Corpuscular Volume 84.8, Mean Corpuscular Hemoglobin 26.8 L, Mean Corpuscular Hemoglobin Concent 31.6 L, Red Cell Distribution Width 16.8 H, Neutrophils (%) (Auto) 51.9, Lymphocytes (%) (Auto) 36.4, Monocytes (%) (Auto) 6.6 H, Eosinophils (%) (Auto) 2.9, Basophils (%) (Auto) 0.5, Neutrophils # (Auto) 2.3, Lymphocytes # (Auto) 1.7, Monocytes # (Auto) 0.3, Eosinophils # ( Auto) 0.1, Basophils # (Auto) 0.0 09/25/16 06:27 Red Blood Count 4.19, Mean Corpuscular Volume 83.8, Mean Corpuscular Hemoglobin 27.4, Mean Corpuscular Hemoglobin Concent 32.7, Red Cell Distribution Width 16.9 H, Neutrophils (%) (Auto) 51.1, Lymphocytes (%) (Auto) 36.9, Monocytes (%) (Auto) 7.5 H, Eosinophils (%) (Auto) 2.8, Basophils (%) (Auto) 0.4, Neutrophils # (Auto) 2.4, Lymphocytes # (Auto) 1.8, Monocytes # (Auto) 0.4, Eosinophils # ( Auto) 0.1, Basophils # (Auto) 0.0, Calcium Level 8.1 L, Aspartate Amino Transf ( AST/SGOT) 172 H, Alanine Aminotransferase (ALT/SGPT) 444 H, Alkaline Phosphatase 134 H, Total Bilirubin 2.4 H, Total Protein 5.9 L, Albumin 2.8 #L Home Medications Scheduled ( 1.5-30 mg-Mcg) 1 Tab Tab, 1 TAB PO DAILY, (Reported) Ketorolac Tromethamine (Ketorolac Tromethamine) 10 Mg Tab, 10 MG PO Q8H, ( Reported) Prednisone (Prednisone) 20 Mg Tab, 20 MG PO DAILY, (Reported) Scheduled PRN Acetaminophen/Hydrocodone (Hydrocodone/Acetaminophen 5-325 mg) 1 Tab Tab, 1 TAB PO Q6H PRN for PAIN, (Reported) MDD 4 Acetaminophen/Hydrocodone ([place], Anexsia 5/325) 1 Tab Tab, 1 TAB PO Q4HP PRN for MODERATE PAIN (PS 5-7) Ondansetron (Zofran Odt) 4 Mg Tab, 4 MG PO Q4H PRN for NAUSEA, (Reported) Allergies Coded Allergies: No Known Allergies (Unverified , 07/05/16) MATT JUNG MD Sep 25, 2016 08:40
[2016-09-25] MEDS: SENOKOT S TAB PO SCH ×2 (09:30→21:00)
[2016-09-25] MEDS: PANTOPRAZOLE 40MG INJ (PROTONIX) (C9113) IV SCH (09:31)
--- NOTE | 2016-09-25 14:30 | CR ---
DATE OF CONSULTATION: 09/25/2016 STATUS: Patient is inpatient. REQUESTING PHYSICIAN: Ernie White MD REASON FOR CONSULTATION: Biliary colic. HISTORY OF PRESENT ILLNESS: Jennifer is a 20-year-old female without any significant past medical history. She complains of recurrent episodes of epigastric pain and some nausea, vomiting and some darkening of urine for the past month. She presented to the emergency room approximately 3 days ago with similar complaints of abdominal pain, nausea and vomiting, was evaluated and discharged home with probable biliary colic. However, her left liver function enzymes were normal and she was deferred outpatient management for surgery. She had a repeated attack on 09/24 and represented emergency room. This time ultrasound and CT revealed multiple gallstones in her gallbladder as well as gallstones in her common bile duct. Her liver enzymes showed a cholestatic pattern and she was admitted for further management as an inpatient. ALLERGIES: No known drug allergies. MEDICATIONS AT HOME: None. SOCIAL HISTORY: This is negative for tobacco and alcohol. FAMILY HISTORY: Negative for colorectal carcinoma, inflammatory bowel disease or chronic liver disease. REVIEW OF SYSTEMS: GENERAL: Negative for night sweats, fevers or chills. Positive for weight loss after . Positive for darkening of urine for the past month. HEAD, EYES, EARS, NOSE AND THROAT: She denies any double vision, ear symptoms or change in voice quality. CARDIAC: Negative for chest pain, orthopnea, paroxysmal nocturnal dyspnea (PND). MUSCULOSKELETAL: Negative for arthralgias or myalgia. PULMONARY: Negative for shortness of breath, dyspnea. GASTROINTESTINAL (GI): As per history of present illness. GENITOURINARY (): Negative for hematuria, dysuria. Positive for darkening of urine. PHYSICAL EXAMINATION: Temperature 97.5, pulse 60, respiratory rate 16, blood pressure 117/73, pulse oximetry 100% on room air. GENERAL: She is awake, alert and oriented times three in no acute distress. She is comfortably in bed. HEAD, EYES, EARS, NOSE AND THROAT: Notable for very slight scleral icterus, but no other abnormalities. NECK: Supple. No lymphadenopathy, thyromegaly. CHEST: Clear bilaterally. HEART: Regular rate and rhythm, S1-S2. ABDOMEN: Soft, mildly tender in the epigastric area on deep palpation without any rebound or masses felt. There is no ascites. EXTREMITIES: Negative for edema. RECTAL: Examination is deferred as per patient. NEUROLOGIC EXAMINATION: She moves all extremities equally and bilaterally. She is awake, alert and oriented times three. Ambulates in hallway without assistance or without difficulty. LABORATORY FINDINGS: WBC 4.4/4.7, hemoglobin 12.7/11.5, platelet count is 237/208. Chemistries reveal a BUN of 5, creatinine of 0.5, total bilirubin of 2.75/2.4, direct bilirubin 1.9, AST 309/172, ALT 636/444, alkaline phosphatase 159/134, amylase and lipase are normal. IMAGING STUDIES: Ultrasound right upper quadrant choledocholithiasis, cholelithiasis. IMPRESSION: 1. Biliary colic. 2. Choledocholithiasis. RECOMMENDATIONS: In view of her current symptoms for the past month, I would at this point favor ERCP over watchful waiting. This has been extensively discussed with the patient including alternatives such as wait and see approach have been presented. The patient chooses to proceed with ERCP as recommended and will be scheduled. She is aware of the risks, benefits and options. She accepts the risks of pancreatitis, infection or bleeding.
[2016-09-25] MEDS ORDERED: ISOVUE-300 61% 50ML VIAL (Q9967) As Ordered ONE (16:15)
[2016-09-25] MEDS ORDERED: metroNIDAZOLE/NACL 500MG(5MG/ML)100 ML BAG (S0030) As Ordered ONE (18:19)
[2016-09-25] MEDS ORDERED: ROCURONIUM BROMIDE 50 MG/5 ML VIAL/SYRINGE As Ordered ONE (18:54)
[2016-09-25] MEDS ORDERED: MIDAZOLAM INJ 2 MG/2 ML VIAL (J2250) As Ordered ONE (18:54)
[2016-09-25] MEDS ORDERED: fentaNYL 100 MCG/2 ML INJECTION (J3010) As Ordered ONE (18:54)
[2016-09-25] MEDS ORDERED: LIDOCAINE 2% INJ 100 MG/5 ML SDV (FOR ANES.) As Ordered ONE (18:54)
[2016-09-25] MEDS ORDERED: PROPOFOL 200 MG/20 ML VIAL As Ordered ONE (18:54)
[2016-09-25] MEDS ORDERED: KETOROLAC 60 MG/2 ML VIAL (J1885) As Ordered ONE (19:22)
[2016-09-25] MEDS ORDERED: ONDANSETRON 4MG/2ML VIAL (J2405) As Ordered ONE (19:22)
[2016-09-25] MEDS ORDERED: NEOSTIGMINE 1MG/ML 5 ML SYRINGE (J2710) As Ordered ONE (19:22)
[2016-09-25] MEDS ORDERED: GLYCOPYRROLATE INJ 0.2 MG/ML 2 ML VIAL As Ordered ONE (19:22)
--- NOTE | 2016-09-25 19:38 | ROOR ---
Patient Name: Jennifer Rodriguez Procedure Date: 09/25/2016 6:23 PM Date of : 1995 Age: 20 Room: Main OR Gender: Female Note Status: Finalized Procedure: ERCP Indications: Bile duct stone on Ultrasound, Elevated liver enzymes Providers: Jonathan BYRD MD Referring MD: RYAN DAVIS MD, Ernie White MD Requesting Provider: Medicines: Monitored Anesthesia Care, General Anesthesia Complications: No immediate complications. Procedure: Pre-Anesthesia Assessment: - The heart rate, respiratory rate, oxygen saturations, blood pressure, adequacy of pulmonary ventilation, and response to care were monitored throughout the procedure. The Duodenoscope was introduced through the mouth, and advanced to the duodenum and used to inject contrast into the bile duct. The ERCP was accomplished without difficulty. The patient tolerated the procedure well. 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 The esophagus was successfully intubated under direct vision. The scope was advanced to a normal major papilla in the descending duodenum without detailed examination of the pharynx, larynx and associated structures, and upper GI tract. The upper GI tract was grossly normal. A wire was passed into the ventral pancreatic duct. A wire was passed into the biliary tree. The bile duct was then deeply cannulated over the guidewire. Contrast was injected. I personally interpreted the bile duct images. Ductal flow of contrast was adequate. Image quality was adequate. Image quality was suboptimal. Opacification of the entire opacified area was successful. The maximum diameter of the ducts was 8 mm. The lower third of the main bile duct contained two stones, the largest of which was 5 mm in diameter. The main bile duct was mildly dilated. An 8 mm biliary sphincterotomy was made with a traction (standard) sphincterotome using ERBE electrocautery. There was no post-sphincterotomy bleeding. The biliary tree was swept with a 9 mm balloon starting at the bifurcation. All stones were removed. One 5 Fr by 4 cm temporary stent was placed into the ventral pancreatic duct. Clear fluid flowed through the stent. The stent was in good position. Impression: - The entire main bile duct was mildly dilated. - Choledocholithiasis was found. Complete removal was accomplished by biliary sphincterotomy and balloon extraction. - A biliary sphincterotomy was performed. - The biliary tree was swept. - One temporary stent was placed into the ventral pancreatic duct. (to reduce risk of pancreatitis) Recommendation: - Observe patient's clinical course. - Surgical consultation for consideration of cholecystectomy at the next available appointment. - Confirm spontaneous stent passage by performing a KUB x-ray in 1 week. - Confirm spontaneous stent passage by performing a KUB x-ray in 2 weeks. Jonathan Byrd MD Jonathan BYRD MD 09/25/2016 7:37:40 PM This report has been signed electronically. Number of Addenda: 0 Note Initiated On: 09/25/2016 6:23 PM Estimated Blood Loss: Estimated blood loss: none.
[2016-09-25] MEDS ORDERED: fentaNYL 100 MCG/2 ML INJECTION (J3010) IV PRN (20:00)
[2016-09-25] MEDS ORDERED: LR 1,000 ML IV SCH (20:00)
[2016-09-26] VITALS: BP 116/63
[2016-09-26] MEDS: CIPROFLOXACIN 400 MG in APPROPRIATE DILUENT 1 EA IV SCH ×2 (00:49→13:43)
[2016-09-26 01:00] VITALS: BP 112/57
[2016-09-26] MEDS: metroNIDAZOLE 500 MG in APPROPRIATE DILUENT 1 EA IV SCH ×3 (02:32→18:38)
[2016-09-26] MEDS: LR 1,000 ML IV SCH ×3 (02:32→17:34)
[2016-09-26 08:00] VITALS: BP 112/63
[2016-09-26] MEDS: PANTOPRAZOLE 40MG INJ (PROTONIX) (C9113) IV SCH (08:34)
[2016-09-26] MEDS: SENOKOT S TAB PO SCH ×2 (08:35→21:00)
[2016-09-26] MEDS: ENOXAPARIN 40 MG/0.4 ML SYRINGE (J1650) SC SCH (09:00)
--- NOTE | 2016-09-26 09:15 | REP ---
MULTIPLE IMAGES DURING ERCP: Multiple images are performed during ERCP exam. Endoscope and catheter are visualized. There is contrast injected into the biliary system which is mild to moderately dilated. No definite stricture of filling defect is visualized. 3 minutes 24 seconds of fluoroscopy time was utilized. Signed by Zeke Garcia MD 09/26/2016 03:27 P
--- NOTE | 2016-09-26 13:24 | IPNPDOC ---
Subjective General Date/Time Seen The patient was seen on 09/26/16 at 13:23. Subject Chief Complaint/History The patient is a 20-year-old female admitted with a reason for visit of Choledocholithiasis. She had these ERCP with extraction of [address] Byrd yesterday. She feels improved. She does not have any ongoing abdominal discomfort. She tolerated liquids last night. Current Medications Current Medications Current Medications Acetaminophen (Tylenol Tab) 650 mg Q4HP PRN PO MILD PAIN or TEMP > 101; Start 09/25/16 at 01:45; Stop 10/25/16 at 01:44 Acetaminophen/ Hydrocodone Bitart ([place], Anexsia 5/325) 1 tab Q4HP PRN PO MODERATE PAIN (PS 5-7); Start 09/25/16 at 01:45; Stop 10/02/16 at 01:44 Acetaminophen/ Hydrocodone Bitart ([place], Anexsia 5/325) 2 tab Q6HP PRN PO SEVERE PAIN (PS 8-10) Last administered on 09/25/16 12:16; Start 09/25/16 at 01 :45; Stop 10/02/16 at 01:44 Ciprofloxacin 400 mg/IV Miscellaneous Supplies 200 ml @ 200 mls/hr Q12H IV Last administered on 09/26/16 00:49; Start 09/25/16 at 01:00; Stop 10/02/16 at 00:59 Fentanyl Citrate (Sublimaze) 25 mcg Q5MP PRN IV MODERATE PAIN (PS 4-7); Start 09/25/16 at 20:00; Stop 09/25/16 at 21:00; Status DC Home Med (Med Rec Complete!) ASDIRECTED XX ; Start 09/25/16 at 02:00; Stop at 02:00; Status DC Lactated Ringer's 1,000 ml @ 100 mls/hr Q10H IV ; Start 09/25/16 at 20:00; Stop 09/25/16 at 21:00; Status DC Lactated Ringer's 1,000 ml @ 125 mls/hr Q8H IV Last administered on 09/26/16 08:35; Start 09/25/16 at 01:34; Stop 10/25/16 at 01:33 Metronidazole 500 mg/IV Miscellaneous Supplies 100 ml @ 100 mls/hr Q8H IV Last administered on 09/26/16 09:07; Start 09/25/16 at 02:00; Stop 10/02/16 at 01:59 Morphine Sulfate (Morphine Sulfate Inj) 2 mg Q15M PRN IV MODERATE/SEVERE PAIN ( PS 5-10) Last administered on 09/24/16 21:21; Start 09/24/16 at 21:15; Stop at 19:54; Status DC Morphine Sulfate (Morphine Sulfate Inj) 4 mg Q2HP PRN IV SEVERE PAIN (PS 8-10) ; Start 09/25/16 at 01:45; Stop 10/02/16 at 01:44 Ondansetron HCl (ZOFRAN INJection) 4 mg Q4HP PRN IV NAUSEA OR VOMITING; Start 09/25/16 at 20:00; Stop 09/25/16 at 21:00; Status DC Ondansetron HCl (ZOFRAN INJection) 4 mg Q6HP PRN IV NAUSEA OR VOMITING; Start 09/25/16 at 01:45; Stop 10/25/16 at 01:44 Pantoprazole Sodium (Protonix) 40 mg DAILY IV Last administered on 09/26/16 08 :34; Start 09/25/16 at 09:00; Stop 10/25/16 at 08:59 Senna/Docusate Sodium (Senokot S) 1 tab BID PO Last administered on 09/26/16 08:35; Start 09/25/16 at 09:00; Stop 10/25/16 at 08:59 Allergies Coded Allergies: No Known Allergies (Unverified , 07/05/16) Objective Physical Examination Examination GENERAL APPEARANCE:Patient seen, laying in bed, awake, alert, and oriented. Comfortable, in no acute distress. SKIN: Warm and moist. HEENT: Normocephalic, atraumatic. [place] palpebral conjunctiva, anicteric sclerae. Lips and mucosa appear moist. NECK: Supple, no thyromegaly. No obvious jugular venous distention. LUNGS: Clear to auscultation bilaterally. No wheezing appreciated. HEART: No chest wall abnormalities. Regular rate and rhythm with no murmurs appreciated. ABDOMEN: Abdomen is , soft, . Nondistended, nontender and palpation EXTREMITIES: Extremities have no deformities. No edema identified. Vital Signs Vital Signs Date Time Temp Pulse Resp B/P (MAP) Pulse Ox O2 Delivery O2 Flow Rate FiO2 09/26/16 08:00 99.3 52 18 112/63 (79) 97 09/26/16 01:00 Room Air I&Os I&O- Last 24 Hours up to 6 AM 09/26/16 06:00 Intake Total 4085 ml Output Total 2600 ml Balance 1485 ml Impression Cholelithiasis with choledocholithiasis Postop day 1 ERCP and stone extraction We will allow her some oral diet today. She is scheduled for laparoscopic cholecystectomy tomorrow Plan / VTE VTE Prophylaxis Ordered?: Yes MATT JUNG MD Sep 26, 2016 13:24
[2016-09-26 17:40] VITALS: BP 124/74
[2016-09-26 20:00] VITALS: BP 122/61
[2016-09-27] VITALS (10 sets, daily range): BP systolic 100–138; BP diastolic 53–90
[2016-09-27] MEDS: LR 1,000 ML IV SCH ×3 (01:23→18:30)
[2016-09-27] MEDS: CIPROFLOXACIN 400 MG in APPROPRIATE DILUENT 1 EA IV SCH ×2 (01:23→12:56)
[2016-09-27] MEDS: metroNIDAZOLE 500 MG in APPROPRIATE DILUENT 1 EA IV SCH ×2 (02:10→10:30)
[2016-09-27 07:15] LABS: ALBUMIN 2.9 GM/DL (3.2-5.2); ALBUMIN/GLOBULIN RATIO 1.12 (1.00-1.93); ALKALINE PHOSPHATASE 115 U/L (45-117); ALT/SGPT 247 U/L (12-78); ANION GAP 6 MEQ/L (8-16); AST/SGOT 53 U/L (15-37); BILIRUBIN,TOTAL 0.7 MG/DL (0.2-1.0); BLOOD UREA NITROGEN 6 MG/DL (7-18); CALCIUM LEVEL 8.1 MG/DL (8.5-10.1); CARBON DIOXIDE LEVEL 30 MEQ/L (21-32); CHLORIDE LEVEL 104 MEQ/L (98-107); CREATININE FOR GFR 0.55 MG/DL (0.55-1.02); GLUCOSE, FASTING 110 MG/DL (70-105); POTASSIUM SERUM 3.5 MEQ/L (3.5-5.1); SODIUM LEVEL 140 MEQ/L (136-145); TOTAL PROTEIN 5.5 GM/DL (6.4-8.2)
[2016-09-27] MEDS: SENOKOT S TAB PO SCH ×2 (08:35→20:59)
[2016-09-27] MEDS: PANTOPRAZOLE 40MG INJ (PROTONIX) (C9113) IV SCH (08:35)
[2016-09-27] MEDS: ENOXAPARIN 40 MG/0.4 ML SYRINGE (J1650) SC SCH (08:36)
--- NOTE | 2016-09-27 14:57 | IPNPDOC ---
Subjective General Date/Time Seen The patient was seen on 09/27/16 at 14:55. Subject Chief Complaint/History The patient is a 20-year-old female admitted with a reason for visit of Choledocholithiasis. Patient is comfortable, tolerating diet. Current Medications Current Medications Current Medications Acetaminophen (Tylenol Tab) 650 mg Q4HP PRN PO MILD PAIN or TEMP > 101; Start 09/25/16 at 01:45; Stop 10/25/16 at 01:44 Acetaminophen/ Hydrocodone Bitart ([place], Anexsia 5/325) 1 tab Q4HP PRN PO MODERATE PAIN (PS 5-7); Start 09/25/16 at 01:45; Stop 10/02/16 at 01:44 Acetaminophen/ Hydrocodone Bitart ([place], Anexsia 5/325) 2 tab Q6HP PRN PO SEVERE PAIN (PS 8-10) Last administered on 09/25/16 12:16; Start 09/25/16 at 01 :45; Stop 10/02/16 at 01:44 Ciprofloxacin 400 mg/IV Miscellaneous Supplies 200 ml @ 200 mls/hr Q12H IV Last administered on 09/27/16 12:56; Start 09/25/16 at 01:00; Stop 10/02/16 at 00:59 Enoxaparin Sodium (Lovenox) 40 mg DAILY SC ; Start 09/26/16 at 09:00; Stop 10/01 at 08:59 Fentanyl Citrate (Sublimaze) 25 mcg Q5MP PRN IV MODERATE PAIN (PS 4-7); Start 09/25/16 at 20:00; Stop 09/25/16 at 21:00; Status DC Home Med (Med Rec Complete!) ASDIRECTED XX ; Start 09/25/16 at 02:00; Stop at 02:00; Status DC Lactated Ringer's 1,000 ml @ 100 mls/hr Q10H IV ; Start 09/25/16 at 20:00; Stop 09/25/16 at 21:00; Status DC Lactated Ringer's 1,000 ml @ 125 mls/hr Q8H IV Last administered on 09/27/16 12:56; Start 09/25/16 at 01:34; Stop 10/25/16 at 01:33 Metronidazole 500 mg/IV Miscellaneous Supplies 100 ml @ 100 mls/hr Q8H IV Last administered on 09/27/16 10:30; Start 09/25/16 at 02:00; Stop 10/02/16 at 01:59 Morphine Sulfate (Morphine Sulfate Inj) 2 mg Q15M PRN IV MODERATE/SEVERE PAIN ( PS 5-10) Last administered on 09/24/16 21:21; Start 09/24/16 at 21:15; Stop at 19:54; Status DC Morphine Sulfate (Morphine Sulfate Inj) 4 mg Q2HP PRN IV SEVERE PAIN (PS 8-10) ; Start 09/25/16 at 01:45; Stop 10/02/16 at 01:44 Ondansetron HCl (ZOFRAN INJection) 4 mg Q4HP PRN IV NAUSEA OR VOMITING; Start 09/25/16 at 20:00; Stop 09/25/16 at 21:00; Status DC Ondansetron HCl (ZOFRAN INJection) 4 mg Q6HP PRN IV NAUSEA OR VOMITING; Start 09/25/16 at 01:45; Stop 10/25/16 at 01:44 Pantoprazole Sodium (Protonix) 40 mg DAILY IV Last administered on 09/27/16 08 :35; Start 09/25/16 at 09:00; Stop 10/25/16 at 08:59 Senna/Docusate Sodium (Senokot S) 1 tab BID PO Last administered on 09/27/16 08:35; Start 09/25/16 at 09:00; Stop 10/25/16 at 08:59 Allergies Coded Allergies: No Known Allergies (Unverified , 07/05/16) Objective Physical Examination Examination GENERAL APPEARANCE:Patient seen, laying in bed, awake, alert, and oriented. Comfortable, in no acute distress. SKIN: Warm and moist. HEENT: Normocephalic, atraumatic. [place] palpebral conjunctiva, anicteric sclerae. Lips and mucosa appear moist. NECK: Supple, no thyromegaly. No obvious jugular venous distention. LUNGS: Clear to auscultation bilaterally. No wheezing appreciated. HEART: No chest wall abnormalities. Regular rate and rhythm with no murmurs appreciated. ABDOMEN: Abdomen is soft, nondistended, nontender EXTREMITIES: Extremities have no deformities. No edema identified. Vital Signs Vital Signs Date Time Temp Pulse Resp B/P (MAP) Pulse Ox O2 Delivery O2 Flow Rate FiO2 09/27/16 08:00 97.7 53 18 105/58 (74) 99 Room Air I&Os I&O- Last 24 Hours up to 6 AM 09/27/16 06:00 Intake Total 760 ml Output Total 4350 ml Balance -3590 ml Laboratory Data Labs 24H Laboratory Tests 2 09/27/16 06:16: Anion Gap 6L, Blood Urea Nitrogen 6L, Creatinine 0.55, Sodium Level 140, Potassium Level 3.5, Chloride Level 104, Carbon Dioxide Level 30, Calcium Level 8.1L, Aspartate Amino Transf (AST/SGOT) 53H, Alanine Aminotransferase (ALT/SGPT ) 247H, Alkaline Phosphatase 115, Total Bilirubin 0.7#, Total Protein 5.5L, Albumin 2.9L, Albumin/Globulin Ratio 1.12 CBC/BMP Laboratory Tests 09/27/16 06:16 Calcium Level 8.1 L, Aspartate Amino Transf (AST/SGOT) 53 H, Alanine Aminotransferase (ALT/SGPT) 247 H, Alkaline Phosphatase 115, Total Bilirubin 0.7 #, Total Protein 5.5 L, Albumin 2.9 L Impression Cholelithiasis Choledocholithiasis s/p ERCP and stone extraction Patient is for lap cholecystectomy today. Details of the procedure, risks, and benefits discussed with patient including risks for bile duct injury, bile leakage. Consent obtained from patient. Plan / VTE VTE Prophylaxis Ordered?: Yes MATT JUNG MD Sep 27, 2016 14:57
[2016-09-27] MEDS ORDERED: BUPIVACAINE HCL 0.25% 30 ML VIAL As Ordered ONE (15:01)
[2016-09-27] MEDS ORDERED: LIDOCAINE 1% SDV INJ 30 ML VIAL As Ordered ONE (15:01)
[2016-09-27] MEDS ORDERED: dexameTHASONE 4 MG/ML 1ML VIAL (J1100) As Ordered ONE (15:43)
[2016-09-27] MEDS ORDERED: ROCURONIUM BROMIDE 50 MG/5 ML VIAL/SYRINGE As Ordered ONE (15:43)
[2016-09-27] MEDS ORDERED: fentaNYL 250 MCG/5 ML INJECTION (J3010) As Ordered ONE (15:43)
[2016-09-27] MEDS ORDERED: MIDAZOLAM INJ 2 MG/2 ML VIAL (J2250) As Ordered ONE (15:43)
[2016-09-27] MEDS ORDERED: PROPOFOL 200 MG/20 ML VIAL As Ordered ONE (15:43)
[2016-09-27] MEDS ORDERED: LIDOCAINE 2% INJ 100 MG/5 ML SDV (FOR ANES.) As Ordered ONE (15:43)
[2016-09-27] MEDS ORDERED: PHENYLephrine HCL 500 MCG/5 ML (100MCG/ML) SYRINGE (J2370) As Ordered ONE (15:48)
[2016-09-27] MEDS ORDERED: KETOROLAC 60 MG/2 ML VIAL (J1885) As Ordered ONE (16:09)
[2016-09-27] MEDS ORDERED: ONDANSETRON 4MG/2ML VIAL (J2405) As Ordered ONE ×2 (16:09→16:59)
[2016-09-27] MEDS ORDERED: NEOSTIGMINE 1MG/ML 5 ML SYRINGE (J2710) As Ordered ONE (16:10)
[2016-09-27] MEDS ORDERED: GLYCOPYRROLATE INJ 0.2 MG/ML 2 ML VIAL As Ordered ONE (16:10)
--- NOTE | 2016-09-27 16:29 | ROOPDOC ---
[facility] Report Of Operation Report of Operation DATE OF PROCEDURE: 09/27/16 PREPROCEDURE DIAGNOSES: Cholelithiasis history of choledocholithiasis s/p ERCP. POSTPROCEDURE DIAGNOSES: Cholelithiasis with Acute Cholecystitis history of choledocholithiasis sp ERCP PROCEDURE: Laparoscopic Cholecystectomy. SURGEON: Luci White MD ASTRONOMY DEPARTMENT CHAIR: ANESTHESIA: general. ESTIMATED BLOOD LOSS: Approximately 10 mL. COMPLICATIONS: none. REMARKS: chronically thickened gallbladder with pericholecystic edema consistent with acute cholecystitis. Long gallbladder, thickened cystic duct. No stones palpated within the cystic duct.. DESCRIPTION OF PROCEDURE: Patient is admitted for choledocholithiasis, cholelithiasis. She has been receiving ciprofloxacin and metronidazole since admission. She has already had ERCP done with reported extraction of stones from the common bile duct, sphincterotomy and a temporary pancreatic stent placed. She has been receiving Cipro and metronidazole perioperatively. She was brought to the operating room, placed supine on the table. General endotracheal anesthesia started. Her abdomen prepped and draped in usual sterile fashion. She had compression stockings for DVT prophylaxis. After surgical timeout we began our surgery. Entry into the abdomen done through an incision above the umbilicus. Veress needle inserted and intra-abdominal insufflation done to a pressure of 15 mmHg. Using the same incision a 5 mm Visiport was placed under direct vision laparoscope. She was then placed on the reverse Trendelenburg position, her right side tilted up about 30 to further expose the gallbladder. 3 working ports were placed in their usual position including an 11 mm port at the epigastric area and two 5 mm ports along the right subcostal line. The gallbladder was noted to be mildly distended, thickened. There is some appearance of pericholecystic wall edema and small amount of serous fluid surrounding the gallbladder fossa consistent with acute cholecystitis. Fundus of gallbladder was grasped and the gallbladder elevated superiorly exposing the infundibulum neck to gallbladder. The neck of the gallbladder retracted laterally to open up the hepatocystic triangle. The hepatic cystic triangle was dissected both with [place] instrument and Bovie cautery. The cystic duct was identified as well as the cystic artery. There were both circumferentially dissected. The posterior wall of the neck of the gallbladder was likewise dissected free off the liver bed. We continued our posterior neck dissection up until we met the critical view of safety whereby only the previously identified duct and artery were coursing through the neck the gallbladder. With this we clipped the cystic artery 4 times and divided it. After again making sure of our anatomy, the cystic duct was clipped 4 times and divided. We proceeded with the surgery removing the rest of the gallbladder from the liver bed. There was some mild oozing at the middle off the liver bed as well as the lateral capsular edge of the gallbladder. This was controlled with Bovie cautery. Gallbladder was removed placed on an Endo Catch bag through the epigastric port site. On re-insufflation , we inspected our clips noted them to be in place. No bile spillage noted. The dissection area was relatively dry with no active oozing at the liver bed. The abdomen was then deflated. All ports were removed. The epigastric fascial defect repaired with 0 Vicryl in mattress fashion. All skin incisions closed with 4-0 Monocryl in subcuticular fashion Steri-Strips and gauze dressings and placed. Patient was then promptly awake and extubated and brought to the recovery room stable sponges and instruments verified to be correct . MATT WHITE MD Sep 27, 2016 16:29
[2016-09-27] MEDS ORDERED: PERCOCET 5MG/325MG TAB As Ordered ONE ×2 (16:59→17:34)
[2016-09-27] MEDS ORDERED: fentaNYL 100 MCG/2 ML INJECTION (J3010) As Ordered ONE (16:59)
[2016-09-27] MEDS: fentaNYL 100 MCG/2 ML INJECTION (J3010) IV PRN ×4 (17:00→17:50)
[2016-09-27] MEDS: PERCOCET 5MG/325MG TAB PO PRN ×2 (17:00→17:30)
[2016-09-27] MEDS ORDERED: LR 1,000 ML IV SCH (17:30)
[2016-09-27] MEDS ORDERED: ONDANSETRON 4MG/2ML VIAL (J2405) IV PRN (17:30)
[2016-09-27] MEDS: NORCO, ANEXSIA 5/325MG TABLET (HYDROcodone/ACETAMINOPHEN) PO PRN (23:54)
[2016-09-28 04:00] VITALS: BP 100/54
[2016-09-28 06:48] LABS: BASO % 0.2 % (0.0-1.0); EOS # 0.1 K/mm3 (0.0-0.50); EOS % 0.8 % (0.0-3.0); LARGE UNSTAINED CELL # 0.1 K/mm3 (0.0-0.4); LARGE UNSTAINED CELL % 1.1 % (0.0-4.0); LYMPH # 1.3 K/mm3 (1.5-6.5); LYMPH % 14.7 % (24.0-44.0); MEAN CORPUSCULAR HEMOGLOBIN 27.1 pg (27.0-33.0); MEAN CORPUSCULAR HGB CONC 32.2 g/dl (32.0-36.5); MEAN CORPUSCULAR VOLUME 84.1 fl (80.0-96.0); MONO # 0.6 K/mm3 (0.0-0.8); MONO % 6.6 % (0.0-5.0); NEUTROPHILS # 6.3 K/mm3 (1.8-7.7); NEUTROPHILS % 76.6 % (36.0-66.0); PLATELET COUNT, AUTOMATED 211 k/mm3 (150-450); RED CELL DISTRIBUTION WIDTH 16.5 % (11.5-14.5); WHITE BLOOD COUNT 8.3 K/mm3 (4.0-10.0)
[2016-09-28 06:58] LABS: ALBUMIN/GLOBULIN RATIO 1.03 (1.00-1.93); ALKALINE PHOSPHATASE 109 U/L (45-117); ALT/SGPT 216 U/L (12-78); ANION GAP 9 MEQ/L (8-16); AST/SGOT 56 U/L (15-37); BILIRUBIN,TOTAL 0.6 MG/DL (0.2-1.0); BLOOD UREA NITROGEN 6 MG/DL (7-18); CALCIUM LEVEL 8.3 MG/DL (8.5-10.1); CARBON DIOXIDE LEVEL 28 MEQ/L (21-32); CHLORIDE LEVEL 101 MEQ/L (98-107); CREATININE FOR GFR 0.57 MG/DL (0.55-1.02); GLUCOSE, FASTING 137 MG/DL (70-105); POTASSIUM SERUM 3.8 MEQ/L (3.5-5.1); SODIUM LEVEL 138 MEQ/L (136-145); TOTAL PROTEIN 5.9 GM/DL (6.4-8.2)
[2016-09-28 08:00] VITALS: BP 103/62
[2016-09-28] MEDS: PANTOPRAZOLE 40MG INJ (PROTONIX) (C9113) IV SCH (09:25)
[2016-09-28] MEDS: SENOKOT S TAB PO SCH (09:25)
[2016-09-28] MEDS: NORCO, ANEXSIA 5/325MG TABLET (HYDROcodone/ACETAMINOPHEN) PO PRN ×2 (09:27→14:33)
[2016-09-28] MEDS: ENOXAPARIN 40 MG/0.4 ML SYRINGE (J1650) SC SCH (09:28)
[2016-09-28 12:00] VITALS: BP 117/64
[2016-09-28] MEDS ORDERED: NORCOTAB PO (12:48)
--- NOTE | 2016-09-29 12:31 | DS.PDOC ---
Discharge Summary General Date of Admission Sep 25, 2016 at 01:34 Date of Discharge September 28, 2016 Attending Physician: MATT JUNG MD Specialist/Consultants Involve: NICHELLE BYRD MD Discharge Summary PROCEDURES PERFORMED DURING STAY: 1. ERCP, stone extraction, sphincterotomy, and temporary pancreatic stent placement (09/25/16) 2. Laparoscopic Cholecystectomy (09/27/16) . ADMITTING DIAGNOSES: 1. Cholelithiasis 2. Choledocholithiasis 3. Elevated Liver Function Tests DISCHARGE DIAGNOSES: 1. Acute Cholecystitis 2. Choledocholithiasis 3. Elevated Liver Function Tests COMPLICATIONS/CHIEF COMPLAINT: Choledocholithiasis. HISTORY OF PRESENT ILLNESS: See HPI. HOSPITAL COURSE: Patient was admitted under my service. She was placed on ciprofloxacin and metronidazole IV, nothing by mouth for bowel rest. Dr. Byrd was contacted and she was brought to the operating room for ERCP. 2 stones were extracted. She has sphincterotomy as well as a pancreatic stent placed. She clinically improved with near resolution of her abdominal pain and discomfort. Her bilirubin level dropped to normal. Her AST and ALT gradually came down. She was tried into liquids which she tolerated. She was then scheduled for laparoscopic cholecystectomy. The procedure went accordingly and she was advanced to regular food which she tolerated. She was subsequently discharged home improved the following day with her LFTs nearly back to normal at this discharge. DISCHARGE MEDICATIONS: Please see below. ALLERGIES: Please see below. PHYSICAL EXAMINATION ON DISCHARGE: VITAL SIGNS: Please see below. GENERAL: Awake, alert, oriented HEENT: Anicteric sclerae NECK: Supple, no lymphadenopathy CARDIOVASCULAR EXAMINATION: Regular heart rate and rhythm RESPIRATORY EXAMINATION: Clear breath sounds bilaterally ABDOMINAL EXAMINATION: Soft, nondistended, nontender. Thorascopic port sites with dressings intact EXTREMITIES: No edema SKIN: No skin rashes, no jaundice NEUROLOGICAL EXAMINATION: Awake, alert, oriented PSYCHIATRIC EXAMINATION: Mood and affect are appropriate LABORATORY DATA: Please see below. PROGNOSIS: Good, patient had improved ACTIVITY: Light activity for 2 weeks. DIET: Low-fat diet. DISCHARGE PLAN: And follow-up with me in 2 weeks' time. Follow up with Dr. Byrd as scheduled place office. DISPOSITION: Home, Self-Care. DISCHARGE CONDITION: Stable. TIME SPENT ON DISCHARGE: Greater than 30 minutes. Vital Signs/I&Os Vital Signs Date Time Temp Pulse Resp B/P (MAP) Pulse Ox O2 Delivery O2 Flow Rate FiO2 7/27/17 14:33 16 09/28/16 12:00 97.7 56 117/64 (81) 100 Room Air I&O- Last 24 Hours up to 6 AM 09/29/16 06:00 Intake Total 330 ml Output Total 800 ml Balance -470 ml Discharge Medications Scheduled ( 1.5-30 mg-Mcg) 1 Tab Tab, 1 TAB PO DAILY, (Reported) Ketorolac Tromethamine (Ketorolac Tromethamine) 10 Mg Tab, 10 MG PO Q8H, ( Reported) Prednisone (Prednisone) 20 Mg Tab, 20 MG PO DAILY, (Reported) Scheduled PRN Acetaminophen/Hydrocodone (Hydrocodone/Acetaminophen 5-325 mg) 1 Tab Tab, 1 TAB PO Q6H PRN for PAIN, (Reported) MDD 4 Acetaminophen/Hydrocodone (Tullos, Anexsia 5/325) 1 Tab Tab, 1 TAB PO Q4HP PRN for MODERATE PAIN (PS 5-7) Ondansetron (Zofran Odt) 4 Mg Tab, 4 MG PO Q4H PRN for NAUSEA, (Reported) Allergies Coded Allergies: No Known Allergies (Unverified , 07/05/16) MATT JUNG MD Sep 29, 2016 12:26
== END 2016-09-28 15:00 | disposition home or self-care (01) | DRG 419 ==
LOC: M ED 18:45 → M ED INP 09-25 01:34 → M PED 09-25 04:45
PROVIDERS: ADMIT Surgery; ATTEND Surgery
PROC: 0FC98ZZ Extirpation of Matter from Common Bile Duct, Via Natural or Artificial Opening Endoscopic (ICD-10-PCS; 2016-09-25)
PROC: 0F7D8DZ Dilation of Pancreatic Duct with Intraluminal Device, Via Natural or Artificial Opening Endoscopic (ICD-10-PCS; 2016-09-25)
PROC: 0FT44ZZ Resection of Gallbladder, Percutaneous Endoscopic Approach (ICD-10-PCS; principal; 2016-09-27 15:15)
DX: K80.63 Calculus of gallbladder and bile duct with acute cholecystitis with obstruction (principal); R94.5 Abnormal results of liver function studies; Z79.52 Long term (current) use of systemic steroids; Z79.891 Long term (current) use of opiate analgesic

== ENCOUNTER 2016-10-11 12:43 | Emergency (ER) | payer OTHER ==
[~2016-10-11] VITALS: Ht 165.1 cm; Wt 61.8 kg
[~2016-10-11 12:43] MED LIST changes: -BCP PO; -ELIQ5TAB PO
[2016-10-11] MEDS ORDERED: BCP PO (12:49)
--- NOTE | 2016-10-11 14:37 | REP ---
Left upper extremity deep vein duplex ultrasound: Deep vein duplex ultrasound performed from the brachial veins to the jugular vein. There is nonocclusive thrombus in the basilic, brachial and axillary veins. No thrombus is identified in the subclavian or jugular veins. The cephalic vein could not be visualized. Signed by Zeke Dia MD 10/11/2016 02:28 P
[2016-10-11] MEDS ORDERED: ELIQ5TAB PO (14:50)
[2016-10-11 14:59] VITALS: BP 134/72
[2016-10-11] MEDS ORDERED: APIXABAN 5 MG TAB (ELIQUIS) PO ONE (15:00)
== END 2016-10-11 15:23 | disposition home or self-care (01) ==
LOC: M ED 12:43
DX: I82.622 Acute embolism and thrombosis of deep veins of left upper extremity (principal); R51 Headache; R74.8 Abnormal levels of other serum enzymes

== ENCOUNTER → 2016-10-11 | Outpatient (CLI) | payer OTHER ==
[~2016-10-11] MED LIST changes: +BCP PO; +ELIQ5TAB PO; +JUNETAB2 PO; +NORCOTAB PO
== END ==
LOC: M LRY 11:12
PROVIDERS: ATTEND Nurse Practitioner Family
DX: M79.622 Pain in left upper arm (principal); Z53.9 Procedure and treatment not carried out, unspecified reason

== ENCOUNTER → 2016-10-11 | Outpatient (CLI) | payer OTHER | LOC: M LRY 11:15 | PROVIDERS: ATTEND Nurse Practitioner Family | DX: M79.622 Pain in left upper arm (principal); Z53.9 Procedure and treatment not carried out, unspecified reason ==

== ENCOUNTER 2016-10-12 19:50 | Emergency (ER) | payer OTHER ==
[~2016-10-12] VITALS: Ht 165.1 cm; Wt 61.8 kg
[~2016-10-12 19:50] MED LIST changes: +BCP PO; +ELIQ5TAB PO
[2016-10-12 19:54] VITALS: BP 120/71
== END 2016-10-12 21:01 | disposition home or self-care (01) ==
LOC: M ED 19:50
DX: M79.602 Pain in left arm (principal); I82.A12 Acute embolism and thrombosis of left axillary vein

== ENCOUNTER 2017-01-14 23:21 | Emergency (ER) | payer OTHER ==
[2017-01-14 23:28] VITALS: BP 115/72
--- NOTE | 2017-01-15 | REPUSA ---
CT of the head Clinical history: fall. Technique: Multiple axial CT images were obtained through the head without administration of contrast . Findings: The ventricles and sulci are symmetric bilaterally. There is no evidence of acute hemorrhag e or infarct. There is no midline shift, mass effect, or extra-axial fluid collection. The osseous st ructures are unremarkable. The visualized paranasal sinuses and mastoid air cells are clear. There is superficial soft tissue swelling in the left frontal region. Impression: No acute intracranial hemorrhage or infarct. Focal superficial soft tissue swelling in th e left frontal region.
== END 2017-01-15 00:18 | disposition home or self-care (01) ==
LOC: M ED 23:21
DX: S00.93XA Contusion of unspecified part of head, initial encounter (principal); W10.9XXA Fall (on) (from) unspecified stairs and steps, initial encounter; Y92.009 Unspecified place in unspecified non-institutional (private) residence as the place of occurrence of the external cause; Y93.02 Activity, running; Y99.8 Other external cause status; Z79.01 Long term (current) use of anticoagulants

== ENCOUNTER → 2017-01-26 | Outpatient (REF) | payer OTHER | LOC: M SFHCLERA 15:36 | PROVIDERS: ATTEND Nurse Practitioner Family | DX: N93.9 Abnormal uterine and vaginal bleeding, unspecified (principal) | CPT/HCPCS: 87086; 87491; 87591; G0463 ==

== ENCOUNTER 2017-08-30 20:20 | Emergency (ER) | payer OTHER ==
[2017-08-30 22:18] LABS: BASO % 0.4 % (0.0-1.0); EOS # 0.2 10^3/uL (0.0-0.50); EOS % 2.2 % (0.0-3.0); HEMATOCRIT 38.4 % (36.0-47.0); HEMOGLOBIN 12.7 g/dl (12.0-15.5); IMMATURE GRANULOCYTE % 0.2 % (0-3.0); LYMPH # 3.1 10^3/uL (1.5-6.5); LYMPH % 32.1 % (24.0-44.0); MEAN CORPUSCULAR HEMOGLOBIN 27.3 pg (27.0-33.0); MEAN CORPUSCULAR HGB CONC 33.1 g/dl (32.0-36.5); MEAN CORPUSCULAR VOLUME 82.4 fl (80.0-96.0); MONO # 0.7 10^3/uL (0.0-0.8); MONO % 7.3 % (0.0-5.0); NEUTROPHILS # 5.5 10^3/uL (1.8-7.7); NEUTROPHILS % 57.8 % (36.0-66.0); PLATELET COUNT, AUTOMATED 218 10^3/uL (150-450); RED BLOOD COUNT 4.66 10^6/uL (4.00-5.40); RED CELL DISTRIBUTION WIDTH 14.9 % (11.5-14.5); WHITE BLOOD COUNT 9.5 10^3/uL (4.0-10.0)
[2017-08-30 22:23] LABS: KETONE, URINE AUTO RFX NEGATIVE (NEGATIVE); LEUKOCYTE ESTERASE UR AUTO RFX NEGATIVE (NEGATIVE); MUCUS, URINE RFX SMALL (NEGATIVE); NITRITE, URINE AUTO RFX NEGATIVE (NEGATIVE); RBC, URINE AUTO RFX 3 /HPF (0-3); SPECIFIC GRAVITY UR AUTO RFX 1.019 (1.002-1.035); SQUAM EPITHELIAL CELL UR AURFX 1 /HPF (0-6); WBC, URINE AUTO RFX 0 /HPF (0-3)
[2017-08-30 22:40] LABS: CONTROL LINE HCG INT CTR LINE PRESENT; HCG, SERUM QUALITATIVE NEGATIVE (NEGATIVE)
[2017-08-30 23:04] LABS: ANION GAP 7 MEQ/L (8-16); BLOOD UREA NITROGEN 11 MG/DL (7-18); CALCIUM LEVEL 8.8 MG/DL (8.5-10.1); CARBON DIOXIDE LEVEL 28 MEQ/L (21-32); CHLORIDE LEVEL 105 MEQ/L (98-107); CREATININE FOR GFR 0.59 MG/DL (0.55-1.30); GLUCOSE, FASTING 91 MG/DL (70-100); POTASSIUM SERUM 4.2 MEQ/L (3.5-5.1); SODIUM LEVEL 140 MEQ/L (136-145)
== END 2017-08-30 23:28 | disposition home or self-care (01) ==
LOC: M ED 20:20
DX: N83.201 Unspecified ovarian cyst, right side (principal)
CPT/HCPCS: 76856

== ENCOUNTER 2017-09-22 15:22 | Emergency (ER) | payer OTHER ==
[2017-09-22] MEDS: NS 1,000 ML IV (16:15)
[2017-09-22 16:23] LABS: BASO % 0.6 % (0.0-1.0); EOS # 0.2 10^3/uL (0.0-0.50); EOS % 2.9 % (0.0-3.0); HEMATOCRIT 40.2 % (36.0-47.0); HEMOGLOBIN 13.1 g/dl (12.0-15.5); IMMATURE GRANULOCYTE % 0.2 % (0-3.0); LYMPH # 1.9 10^3/uL (1.5-6.5); LYMPH % 36.5 % (24.0-44.0); MEAN CORPUSCULAR HEMOGLOBIN 27.6 pg (27.0-33.0); MEAN CORPUSCULAR HGB CONC 32.6 g/dl (32.0-36.5); MEAN CORPUSCULAR VOLUME 84.8 fl (80.0-96.0); MONO # 0.4 10^3/uL (0.0-0.8); MONO % 7.1 % (0.0-5.0); NEUTROPHILS # 2.8 10^3/uL (1.8-7.7); NEUTROPHILS % 52.7 % (36.0-66.0); PLATELET COUNT, AUTOMATED 204 10^3/uL (150-450); RED BLOOD COUNT 4.74 10^6/uL (4.00-5.40); RED CELL DISTRIBUTION WIDTH 14.6 % (11.5-14.5); WHITE BLOOD COUNT 5.2 10^3/uL (4.0-10.0)
[2017-09-22 16:25] LABS: KETONE, URINE AUTO RFX NEGATIVE (NEGATIVE); LEUKOCYTE ESTERASE UR AUTO RFX NEGATIVE (NEGATIVE); NITRITE, URINE AUTO RFX NEGATIVE (NEGATIVE); RBC, URINE AUTO RFX 1 /HPF (0-3); SPECIFIC GRAVITY UR AUTO RFX 1.004 (1.002-1.035); SQUAM EPITHELIAL CELL UR AURFX 0 /HPF (0-6); WBC, URINE AUTO RFX 0 /HPF (0-3)
[2017-09-22 16:41] LABS: ALBUMIN 3.9 GM/DL (3.2-5.2); ALBUMIN/GLOBULIN RATIO 1.05 (1.00-1.93); ALKALINE PHOSPHATASE 68 U/L (45-117); ALT/SGPT 19 U/L (12-78); ANION GAP 7 MEQ/L (8-16); AST/SGOT 15 U/L (7-37); BILIRUBIN,DIRECT < 0.1 MG/DL (0.0-0.2); BILIRUBIN,TOTAL 0.4 MG/DL (0.2-1.0); BLOOD UREA NITROGEN 8 MG/DL (7-18); CALCIUM LEVEL 8.6 MG/DL (8.5-10.1); CARBON DIOXIDE LEVEL 30 MEQ/L (21-32); CHLORIDE LEVEL 105 MEQ/L (98-107); CREATININE FOR GFR 0.58 MG/DL (0.55-1.30); GLUCOSE, FASTING 89 MG/DL (70-100); LIPASE 123 U/L (73-393); SODIUM LEVEL 142 MEQ/L (136-145); TOTAL PROTEIN 7.6 GM/DL (6.4-8.2)
[2017-09-22] MEDS ORDERED: ISOVUE-370 76% 100ML VIAL (Q9967) As Ordered (16:47)
== END 2017-09-22 18:11 | disposition home or self-care (01) ==
LOC: M ED 15:22
DX: K52.9 Noninfective gastroenteritis and colitis, unspecified (principal); Z86.718 Personal history of other venous thrombosis and embolism
CPT/HCPCS: Q9967

== ENCOUNTER → 2017-09-25 | Outpatient (REF) | payer OTHER | LOC: M LAB REF 15:06 | DX: R19.7 Diarrhea, unspecified (principal) ==

== ENCOUNTER 2018-09-04 10:00 | Emergency (ER) | payer OTHER ==
[~2018-09-04] VITALS: Ht 162.6 cm; Wt 65.9 kg
[~2018-09-04 10:00] MED LIST changes: +HYDR-3715 PO; -NORCOTAB PO; +ZOFR4TAB14 PO; -ZOFR4TAB3 PO
--- NOTE | 2018-09-04 13:03 | REP ---
CHEST: Two views. There is no evidence of acute infiltrate. No pleural effusion is seen. The heart is normal in size. The mediastinal silhouette is unremarkable. The visualized osseous structures are intact. IMPRESSION: No acute pulmonary disease. Electronically Signed by Zeke Garcia MD 09/04/2018 04:32 P
--- NOTE | 2018-09-04 13:07 | REP ---
Right lower extremity Duplex Doppler venous ultrasound: Real time compression and duplex Doppler interrogation of the right lower extremity deep venous system is performed. The right common femoral, superficial femoral and popliteal veins are fully compressible with transducer pressure and demonstrate normal spontaneous and phasic flow, without evidence of deep venous thrombosis. Impression: No evidence of deep venous thrombosis of the right lower extremity femoral popliteal venous system. Electronically Signed by Zeke Garcia MD 09/04/2018 12:58 P
[2018-09-04 13:18] VITALS: BP 103/63
== END 2018-09-04 13:26 | disposition home or self-care (01) ==
LOC: M ED 10:00
DX: M79.651 Pain in right thigh (principal); R06.02 Shortness of breath; Z87.42 Personal history of other diseases of the female genital tract; Z87.440 Personal history of urinary (tract) infections; Z86.718 Personal history of other venous thrombosis and embolism

== ENCOUNTER → 2018-09-28 | Outpatient (REF) | payer OTHER ==
[~2018-09-28] MED LIST changes: +PYRI1TAB5 PO
[2018-09-28 21:54] LABS: APPEARANCE, URINE CLEAR (CLEAR); BACTERIA, URINE AUTO NEGATIVE (NEGATIVE); BILIRUBIN, URINE AUTO NEGATIVE (NEGATIVE); BLOOD, URINE BLOOD 2+ (NEGATIVE); COLOR, URINE STRAW (YELLOW); GLUCOSE, URINE (UA) AUTO NEGATIVE (NEGATIVE); KETONE, URINE AUTO NEGATIVE (NEGATIVE); LEUKOCYTE ESTERASE, URINE AUTO 1+ (NEGATIVE); MUCUS, URINE SMALL (NEGATIVE); NITRITE, URINE AUTO NEGATIVE (NEGATIVE); PROTEIN, URINE AUTO NEGATIVE (NEGATIVE); RBC, URINE AUTO 38 /HPF (0-3); SPECIFIC GRAVITY URINE AUTO 1.012 (1.002-1.035); SQUAMOUS EPITHELIAL CELL UR AU 0 /HPF (0-6); UROBILINOGEN, URINE AUTO 0.2 mg/dL (0.0-2.0); WBC, URINE AUTO 2 /HPF (0-3)
== END ==
LOC: M LAB REF 10:29
PROVIDERS: ATTEND Nurse Practitioner Family
DX: N39.0 Urinary tract infection, site not specified (principal)

== ENCOUNTER 2018-10-01 20:39 | Emergency (ER) | payer OTHER ==
[~2018-10-01] VITALS: Ht 162.6 cm; Wt 65.9 kg
[~2018-10-01 20:39] MED LIST changes: -PYRI1TAB5 PO
[2018-10-01 21:52] LABS: APPEARANCE, URINE CLEAR (CLEAR); BACTERIA, URINE AUTO NEGATIVE (NEGATIVE); BILIRUBIN, URINE AUTO NEGATIVE (NEGATIVE); BLOOD, URINE BLOOD 1+ (NEGATIVE); COLOR, URINE COLORLESS (YELLOW); GLUCOSE, URINE (UA) AUTO NEGATIVE (NEGATIVE); KETONE, URINE AUTO NEGATIVE (NEGATIVE); LEUKOCYTE ESTERASE, URINE AUTO NEGATIVE (NEGATIVE); NITRITE, URINE AUTO NEGATIVE (NEGATIVE); PROTEIN, URINE AUTO NEGATIVE (NEGATIVE); RBC, URINE AUTO 0 /HPF (0-3); SPECIFIC GRAVITY URINE AUTO 1.001 (1.002-1.035); SQUAMOUS EPITHELIAL CELL UR AU 0 /HPF (0-6); UROBILINOGEN, URINE AUTO 0.2 mg/dL (0.0-2.0); WBC, URINE AUTO 0 /HPF (0-3)
[2018-10-01] MEDS ORDERED: PYRI1TAB5 PO (23:48)
[2018-10-01 23:57] VITALS: BP 102/66
[2018-10-02] MEDS ORDERED: PHENAZOPYRIDINE 100 MG TAB PO ONE
[2018-10-02 00:47] LABS: CHLAMYDIA DNA AMPLIFICATION NEGATIVE (NEGATIVE); GC DNA AMPLIFICATION NEGATIVE (NEGATIVE)
== END 2018-10-01 23:58 | disposition home or self-care (01) ==
LOC: M ED 20:39
DX: R31.29 Other microscopic hematuria (principal); R30.0 Dysuria; Z87.42 Personal history of other diseases of the female genital tract; Z87.440 Personal history of urinary (tract) infections; Z87.19 Personal history of other diseases of the digestive system; Z79.899 Other long term (current) drug therapy

== ENCOUNTER 2021-08-03 05:13 | Inpatient (IN) | payer OTHER ==
[2021-08-03] VITALS (9 sets, daily range): BP systolic 116–145; BP diastolic 57–84
[~2021-08-03] VITALS: Ht 165.1 cm; Wt 78.3 kg
[~2021-08-03 05:13] MED LIST changes: +METF500T13 PO; +PRENTAB53 PO; +PYRI1TAB5 PO
[2021-08-03] MEDS ORDERED: LACTATED RINGER'S 1000 ML IV STA ×2 (05:34→07:50)
[2021-08-03] MEDS ORDERED: LR 1,000 ML IV SCH ×2 (05:35→09:55)
[2021-08-03] MEDS ORDERED: HOME MED LIST COMPLETE! XX SCH (05:50)
[2021-08-03] MEDS ORDERED: BICITRA 30ML SOLN UDC PO ONE (06:00)
[2021-08-03] MEDS ORDERED: ceFAZolin SOD 2 GM in IV 1 EA IV ONE (06:00)
[2021-08-03 06:34] LABS: HEMATOCRIT 37.2 % (36.0-47.0); HEMOGLOBIN 12.4 g/dl (12.0-15.5); MEAN CORPUSCULAR HEMOGLOBIN 29.9 pg (27.0-33.0); MEAN CORPUSCULAR HGB CONC 33.3 g/dl (32.0-36.5); MEAN CORPUSCULAR VOLUME 89.6 fl (80.0-96.0); PLATELET COUNT, AUTOMATED 192 10^3/uL (150-450); RED BLOOD COUNT 4.15 10^6/uL (4.00-5.40)
[2021-08-03] MEDS ORDERED: METOCLOPRAMIDE INJ 10MG/2ML VIAL (J2765 PER 1) As Ordered ONE (08:44)
[2021-08-03] MEDS ORDERED: dexameTHASONE 4 MG/ML 1ML VIAL (J1100 PER 1MG) As Ordered ONE (08:44)
[2021-08-03] MEDS ORDERED: ePHEDrine SULFATE 25 MG/5 ML(5MG/ML) SYRINGE As Ordered ONE (08:44)
[2021-08-03] MEDS ORDERED: PHENYLephrine 500MCG 5ML (100MCG/ML) SYRINGE As Ordered ONE (08:44)
[2021-08-03] MEDS ORDERED: ACETAMINOPHEN 1000MG 100ML IV BTL (OFIRMEV) (J0131 PER 10MG) As Ordered ONE (08:44)
[2021-08-03] MEDS ORDERED: OXYTOCIN 30 UNITS IN 0.9% NaCl 500ML IV BAG (J2590) As Ordered ONE ×3 (08:44→09:37)
[2021-08-03] MEDS ORDERED: KETOROLAC 60MG 2ML VIAL As Ordered ONE (08:44)
[2021-08-03] MEDS ORDERED: ONDANSETRON 4MG/2ML VIAL As Ordered ONE (08:44)
[2021-08-03] MEDS ORDERED: MORPHINE PRES-FREE INJ 10 MG/10 ML VIAL As Ordered ONE (08:44)
[2021-08-03] MEDS: PRENATAL VITAMINS CHEWABLE TABLET PO SCH (09:00)
[2021-08-03] MEDS ORDERED: OXYTOCIN DRIP 30 UNITS in IV 1 EA IV SCH (09:30)
[2021-08-03] MEDS ORDERED: oxyCODONE 5MG TAB PO PRN ×3 (09:30→09:55)
[2021-08-03] MEDS ORDERED: MEASLES,MUMPS,RUBELLA VACCINE INJ (MMR-II) (90707) SC SCH (09:30)
[2021-08-03] MEDS ORDERED: ONDANSETRON 4MG/2ML VIAL IV PRN ×3 (09:30→09:55)
[2021-08-03] MEDS ORDERED: PROMETHAZINE 25 MG TAB PO PRN (09:30)
[2021-08-03] MEDS ORDERED: RHOGAM 300 MCG (1500 IU) INJ (J2790) IM SCH (09:30)
[2021-08-03] MEDS ORDERED: SIMETHICONE 80MG CHEW TAB PO PRN (09:30)
[2021-08-03] MEDS ORDERED: NALOXONE INJ 0.4MG/1ML VIAL (J2310 PER 1MG) IV PRN ×2 (09:55)
[2021-08-03] MEDS ORDERED: diphenhydrAMINE 50MG/ML VIAL (J1200) IV PRN (09:55)
[2021-08-03] MEDS ORDERED: ePHEDrine INJ 50 MG/ML VIAL IV PRN (09:55)
[2021-08-03] MEDS ORDERED: METOCLOPRAMIDE INJ 10MG/2ML VIAL (J2765 PER 1) IV PRN ×2 (09:55)
[2021-08-03] MEDS ORDERED: **NOTE PATIENT COMMENT** MISC XX SCH (09:55)
[2021-08-03] MEDS: SLF 3 ML SYR IV SCH ×2 (09:55→17:55)
[2021-08-03] MEDS ORDERED: fentaNYL 100 MCG/2 ML INJECTION IV PRN (09:55)
[2021-08-03] MEDS: KETOROLAC 30 MG/ML 1ML VIAL IV SCH ×2 (14:36→21:33)
[2021-08-03] MEDS: ACETAMINOPHEN 500 MG TAB PO SCH (17:13)
[2021-08-03] MEDS: LR 1,000 ML IV SCH ×2 (17:30→21:34)
[2021-08-03] MEDS: DOCUSATE SODIUM 100MG CAPSULE PO SCH (21:33)
[2021-08-03] MEDS: ENOXAPARIN 40MG/0.4ML SYRINGE (J1650 PER 10MG) SC SCH (21:33)
[2021-08-04] MEDS: ACETAMINOPHEN 500 MG TAB PO SCH ×5 (01:00→23:42)
[2021-08-04 02:00] VITALS: BP 119/55
[2021-08-04] MEDS: SLF 3 ML SYR IV SCH (03:43)
[2021-08-04] MEDS: KETOROLAC 30 MG/ML 1ML VIAL IV SCH (03:43)
[2021-08-04 06:00] VITALS: BP 106/54
[2021-08-04 08:54] LABS: HEMATOCRIT 31.2 % (36.0-47.0); MEAN CORPUSCULAR HEMOGLOBIN 29.9 pg (27.0-33.0); MEAN CORPUSCULAR HGB CONC 32.1 g/dl (32.0-36.5); MEAN CORPUSCULAR VOLUME 93.1 fl (80.0-96.0); PLATELET COUNT, AUTOMATED 171 10^3/uL (150-450); RED BLOOD COUNT 3.35 10^6/uL (4.00-5.40)
[2021-08-04] MEDS ORDERED: PRENATAL VITAMINS CHEWABLE TABLET PO SCH (09:00)
[2021-08-04] MEDS: PRENATAL VITAMINS CHEWABLE TABLET PO SCH (09:22)
[2021-08-04] MEDS: DOCUSATE SODIUM 100MG CAPSULE PO SCH ×2 (09:22→20:38)
[2021-08-04 09:50] VITALS: BP 144/63
[2021-08-04] MEDS: IBUPROFEN 800 MG TAB PO SCH ×2 (11:30→18:50)
[2021-08-04 14:08] VITALS: BP 134/64
[2021-08-04 17:30] VITALS: BP 139/75
[2021-08-04] MEDS: ENOXAPARIN 40MG/0.4ML SYRINGE (J1650 PER 10MG) SC SCH (20:38)
[2021-08-04 22:24] VITALS: BP 117/74
[2021-08-05 02:31] VITALS: BP 121/74
[2021-08-05] MEDS: IBUPROFEN 800 MG TAB PO SCH (03:04)
[2021-08-05] MEDS: ACETAMINOPHEN 500 MG TAB PO SCH (06:10)
[2021-08-05 06:16] VITALS: BP 119/80
[2021-08-05] MEDS: PRENATAL VITAMINS CHEWABLE TABLET PO SCH (08:42)
[2021-08-05] MEDS: DOCUSATE SODIUM 100MG CAPSULE PO SCH (08:42)
== END 2021-08-05 10:20 | disposition home or self-care (01) | DRG 773 ==
LOC: M LDI 05:13 → M OBS 11:40
PROVIDERS: ADMIT Obstetrics & Gynecology; ATTEND Obstetrics & Gynecology
PROC: 10D00Z1 Extraction of Products of Conception, Low, Open Approach (ICD-10-PCS; principal; 2021-08-03 07:30)
DX: O34.211 Maternal care for low transverse scar from previous cesarean delivery (principal); Z3A.39 39 weeks gestation of pregnancy; O24.424 Gestational diabetes mellitus in childbirth, insulin controlled; Z37.0 Single live birth; Z86.718 Personal history of other venous thrombosis and embolism

== ENCOUNTER 2022-11-05 19:43 | Emergency (ER) | payer OTHER ==
[~2022-11-05] VITALS: Ht 165.1 cm; Wt 79.5 kg
[2022-11-05 19:44] VITALS: TEMP 98.4; O2SAT 100
[2022-11-05] MEDS ORDERED: NS 1,000 ML IV ONE (22:10)
[2022-11-05] MEDS ORDERED: KETOROLAC 30 MG/ML 1ML VIAL IM ONE (22:10)
[2022-11-05] MEDS ORDERED: METOCLOPRAMIDE INJ 10MG/2ML VIAL IV ONE (22:10)
[2022-11-05 22:45] LABS: HEMATOCRIT 35.8 % (36.0-47.0); HEMOGLOBIN 11.8 g/dl (12.0-15.5); MEAN CORPUSCULAR HEMOGLOBIN 28.4 pg (27.0-33.0); MEAN CORPUSCULAR VOLUME 86.3 fl (80.0-96.0); PLATELET COUNT, AUTOMATED 203 10^3/uL (150-450); RED BLOOD COUNT 4.15 10^6/uL (4.00-5.40); WHITE BLOOD COUNT 8.1 10^3/uL (4.0-10.0)
[2022-11-05 23:17] LABS: RSV AMPLIFICATION NEGATIVE (NEGATIVE)
[2022-11-05 23:18] LABS: ALBUMIN 3.5 G/DL (3.2-5.2); ALKALINE PHOSPHATASE 71 U/L (46-116); ALT/SGPT 13 U/L (7.0-40); AST/SGOT 12 U/L (<34); BILIRUBIN,DIRECT 0.1 MG/DL (<0.4); BILIRUBIN,TOTAL 0.4 MG/DL (0.3-1.2); BLOOD UREA NITROGEN 7 MG/DL (9-23); CALCIUM LEVEL 8.2 MG/DL (8.5-10.1); CARBON DIOXIDE LEVEL 24 MMOL/L (20-31); CHLORIDE LEVEL 107 MMOL/L (98-107); CREATININE FOR GFR 0.57 MG/DL (0.55-1.30); GLOMERULAR FILTRATION RATE > 60.0 (>60); GLUCOSE, FASTING 100 MG/DL (60-100); POTASSIUM SERUM 3.8 MMOL/L (3.5-5.1); SODIUM LEVEL 138 MMOL/L (136-145); TOTAL PROTEIN 6.5 G/DL (5.7-8.2)
[2022-11-05 23:23] LABS: HCG, SERUM QUALITATIVE NEGATIVE (NEGATIVE)
[2022-11-06 00:09] VITALS: BP 111/60
== END 2022-11-06 00:11 | disposition home or self-care (01) ==
LOC: M ED 19:43
DX: E86.0 Dehydration (principal); R51.9 Headache, unspecified
CPT/HCPCS: 80048; 80076; 84703; 85027; 87631; 96361; 96372; 96374; 99284; J1885; J2765

== ENCOUNTER → 2023-04-18 | Outpatient (REF) | payer OTHER | LOC: M LAB REF 09:52 | PROVIDERS: ATTEND Student in an Organized Health Care Education/Training Program | DX: J02.9 Acute pharyngitis, unspecified (principal) ==

== ENCOUNTER → 2023-07-09 | Outpatient (REF) | payer OTHER ==
[2023-07-10 11:41] LABS: Trichomonas vaginalis (AMP) NOT DETECTED (NEGATIVE)
[2023-07-10 12:05] LABS: GC DNA AMPLIFICATION NEGATIVE (NEGATIVE)
== END ==
LOC: M LAB REF 10:14
PROVIDERS: ATTEND Physician Assistant
DX: R30.0 Dysuria (principal)